=== PATIENT | male | born 1965 | race Caucasian/White ===

== ENCOUNTER 2018-03-28 11:39 | Emergency (ER) | payer BC, OTHER ==
[2018-03-28 14:24] LABS: Absolute Lymphocytes (CBC) 2.4 K/uL (0.7-4.9); Absolute Monocytes 0.6 K/uL (0.1-1.3); Absolute Neutrophil 4.5 K/uL (1.8-8.0); Basophils % 0.5 % (0-1.3); Eosinophils % 0.9 % (0-4.4); Hematocrit 49.6 % (39.6-49.0); Lymphocytes % 31.9 % (15.3-44.8); MPV 8.5 fL (7.6-11.3); Monocytes % 8.4 % (3.3-12.3); RBC Red Blood Cell Count 5.36 M/uL (4.33-5.43)
[2018-03-28 14:40] LABS: Albumin 3.6 g/dL (3.4-5.0); Bilirubin Direct 0.2 mg/dL (0-0.2); Potassium 3.7 mmol/L (3.5-5.1); Protein, Total 7.4 g/dL (6.4-8.2)
--- NOTE | 2018-03-28 17:04 | RAD REPORT ---
EXAM DESCRIPTION: CT - Abdomen Pelvis W Contrast - 03/28/2018 4:50 pm CLINICAL HISTORY: Left lower quadrant pain COMPARISON: None. TECHNIQUE: Biphasic, helical CT imaging of the abdomen and pelvis was performed following 100 ml non -ionic IV contrast. No oral contrast administered. All CT scans are performed using dose optimization technique as appropriate and may include automated exposure control or mA/KV adjustment according to patient size. FINDINGS: No suspicious findings in the lung bases. The liver, spleen, and pancreas show no suspicious focal findings. Liver shows diffuse fatty infiltra tion. Cholecystectomy clips are present with no biliary tree dilatation. Symmetric renal function is seen with no hydronephrosis or suspicious renal mass. No pyelonephritis o r acute parenchymal process. No bladder abnormalities. No adrenal abnormalities. No dilated bowel loops or bowel wall thickening. Appendix is normal. Patient has mild diverticulosis but no diverticulitis identifiable. Minimal mucosal level inflammatory changes can be occult on CT im aging. No free air, free fluid or inflammatory stranding. No mass or bulky lymphadenopathy. Patient has a 2.4 centimeter fat only periumbilical hernia. No bowel involvement. No suspicious bony findings. IMPRESSION: Mild left-sided diverticulosis without diverticulitis or other acute GI process identifi able. Fatty infiltration of the liver.
--- NOTE | 2018-03-28 17:35 | ER ---
Nurse's Notes [facility] Name: Charis Malcolm Age: 52 yrs Sex: Male : 1965 Arrival Date: 03/28/2018 Time: 11:45 Bed 25 Private MD: Eladio Irizarry Diagnosis: Unspecified abdominal pain Presentation: 03/28 12:10 Presenting complaint: Patient states: sharp LLQ pain that has been becoming more ss frequent over the past two days. Denies N/V/D and/or fever. Transition of care: patient was not received from another setting of care. Onset of symptoms was March 26, 2018. Risk Assessment: Do you want to hurt yourself or someone else? Patient reports no desire to harm self or others. Initial Sepsis Screen: Does the patient meet any 2 criteria? No. Patient's initial sepsis screen is negative. Does the patient have a suspected source of infection? No. Patient's initial sepsis screen is negative. Care prior to arrival: None. 12:10 Method Of Arrival: Ambulatory ss 12:10 Acuity: ARMANI 3 ss Historical: - Allergies: 12:11 Levaquin; ss - Immunization history:: Adult Immunizations up to date. - Social history:: Smoking status: Patient/guardian denies using tobacco. - Ebola Screening: : Patient denies exposure to infectious person Patient denies travel to an Ebola-affected area in the 21 days before illness onset. Screenin:45 Abuse screen: Denies threats or abuse. Denies injuries from another. Nutritional kr2 screening: No deficits noted. Tuberculosis screening: No symptoms or risk factors identified. Fall Risk None identified. Assessment: 13:42 General: Appears in no apparent distress. uncomfortable, well groomed, well developed, kr2 well nourished, Behavior is calm, cooperative, appropriate for age. Pain: Complains of pain in umbilical area and left lower quadrant Pain currently is 6 out of 10 on a pain scale. Quality of pain is described as sharp, tender, Is continuous, Alleviated by rest, Aggravated by increased activity. Neuro: Level of Consciousness is awake, alert, obeys commands, Oriented to person, place, time, situation, Appropriate for age. Cardiovascular: Capillary refill < 3 seconds in bilateral fingers Patient's skin is warm and dry. Respiratory: Airway is patent Respiratory effort is even, unlabored, Respiratory pattern is regular, symmetrical. GI: Abdomen is flat, non-distended, Bowel sounds present X 4 quads. Abd is soft X 4 quads Abdomen is tender to palpation in umbilical area and left lower quadrant umbilical hernia. Patient states, "I used to be able to push it back in but I can't do that anymore" Patient currently denies diarrhea, nausea, vomiting. : Denies burning with urination. EENT: Oral mucosa is moist. Derm: Skin is intact, is healthy with good turgor, Skin is pink, warm \\T\\ dry. Musculoskeletal: Circulation, motion, and sensation intact. 14:45 Reassessment: Patient appears in no apparent distress at this time. Patient and/or kr2 family updated on plan of care and expected duration. Pain level reassessed. Patient is alert, oriented x 3, equal unlabored respirations, skin warm/dry/pink. 15:30 Reassessment: No changes from previously documented assessment. kr2 16:14 Reassessment: Patient appears in no apparent distress at this time. Patient and/or kr2 family updated on plan of care and expected duration. Pain level reassessed. Patient is alert, oriented x 3, equal unlabored respirations, skin warm/dry/pink. 17:32 Reassessment: Patient appears in no apparent distress at this time. Patient and/or kr2 family updated on plan of care and expected duration. Pain level reassessed. Patient is alert, oriented x 3, equal unlabored respirations, skin warm/dry/pink. Vital Signs: 12:11 BP 147 / 92; Pulse 64; Resp 15; Temp 98.6(TE); Pulse Ox 96% on R/A; Weight 85.28 kg; Height 5 ft. 4 in. (162.56 cm); Pain 6/10; 14:00 BP 130 / 76; Pulse 66; Resp 16; Pulse Ox 97% on R/A; kr2 16:00 BP 140 / 88; Pulse 63; Resp 15; Pulse Ox 97% on R/A; kr2 17:30 BP 133 / 82; Pulse 67; Resp 17; Pulse Ox 96% on R/A; kr2 12:11 Body Mass Index 32.27 (85.28 kg, 162.56 cm) ED Course: 11:45 Patient arrived in ED. mr 11:45 Eladio Irizarry MD is Private Physician. mr 12:11 Triage completed. ss 12:11 Arm band placed on left wrist. ss 13:35 Sweta Saavedra, RN is Primary Nurse. kr2 13:41 Wilber Crespo PA is PHCP. m 13:41 Sirena Malloy MD is Attending Physician. jmm 13:45 Patient has correct armband on for positive identification. Bed in low position. Call kr2 light in reach. Side rails up X 1. Adult w/ patient. Pulse ox on. NIBP on. Door closed. Noise minimized. Warm blanket given. Head of bed elevated. 13:55 Missed attempt(s): 20 gauge in left forearm. Bleeding controlled, band aid applied, kr2 catheter tip intact. 14:00 Inserted saline lock: 22 gauge in left antecubital area, using aseptic technique. Blood kr2 collected. 16:50 Abdomen In Process Unspecified. EDMS 17:35 Sajan Kaur MD is Referral Physician. [facility] 17:43 No provider procedures requiring assistance completed. IV discontinued, intact, kr2 bleeding controlled, No redness/swelling at site. Pressure dressing applied. Administered Medications: 17:31 Drug: morphine 4 mg Route: IVP; Site: left antecubital; kr2 17:43 Follow up: Response: No adverse reaction; Pain is decreased kr2 17:31 Drug: Zofran 4 mg Route: IVP; Site: left antecubital; kr2 17:43 Follow up: Response: No adverse reaction kr2 Outcome: 17:35 Discharge ordered by . [facility] 17:48 Discharged to home via wheelchair, with family. kr2 17:48 Condition: good 17:48 Discharge instructions given to patient, family, Instructed on discharge instructions, follow up and referral plans. medication usage, Demonstrated understanding of instructions, follow-up care, medications, Prescriptions given X 1. 17:49 Patient left the ED. kr2 Signatures: Dispatcher [employer] EDMS Wilber Crespo PA PA jmm Connor Verna Jonelle Vaughnby, RN RN ss Sweta Saavedra, RN RN kr2 Corrections: (The following items were deleted from the chart) 17:43 17:42 Response: No adverse reaction kr2 kr2
--- NOTE | 2018-03-28 17:35 | EDPHYS ---
Physician Documentation [facility] Name: Charis Malcolm Age: 52 yrs Sex: Male : 1965 Arrival Date: 03/28/2018 Time: 11:45 Bed 25 Private MD: Eladio Irizarry ED Physician Sirena Malloy HPI: 03/28 14:12 This 52 yrs old Male presents to ER via Ambulatory with complaints of jmm Abdominal Pain. 14:12 The patient presents with abdominal pain. Onset: The symptoms/episode began/occurred jmm gradually, 2 day(s) ago. The symptoms do not radiate. Associated signs and symptoms: Pertinent negatives: nausea and vomiting, diarrhea, fever, testicular pain, vomiting. The symptoms are described as achy. This is a 52 year old male that presents to the ED with left lower abdominal pain beginning 2 days ago. Denies recent travel, infectious exposure, recent abx use. . Historical: - Allergies: 12:11 Levaquin; ss - Immunization history:: Adult Immunizations up to date. - Social history:: Smoking status: Patient/guardian denies using tobacco. - Ebola Screening: : Patient denies exposure to infectious person Patient denies travel to an Ebola-affected area in the 21 days before illness onset. ROS: 14:12 Constitutional: Negative for fever, chills, and weight loss, Cardiovascular: Negative jmm for chest pain, palpitations, and edema, Respiratory: Negative for shortness of breath, cough, wheezing, and pleuritic chest pain. 14:12 Abdomen/GI: Positive for abdominal pain. 14:12 All other systems are negative. Exam: 14:12 Head/Face: atraumatic. Eyes: EOMI, no conjunctival erythema appreciated ENT: Moist jmm Mucus Membranes Neck: Trachea midline, Supple Chest/axilla: Normal chest wall appearance and motion. Cardiovascular: Regular rate and rhythm. No edema appreciated Respiratory: Normal respirations, no respiratory distress appreciated 14:12 Constitutional: The patient appears in no acute distress, alert, awake. 14:12 Abdomen/GI: Inspection: abdomen appears normal, Bowel sounds: normal, Palpation: soft, moderate abdominal tenderness, in the left lower quadrant. 14:12 Back: pain. 14:12 Back: ROM is normal. 14:12 Musculoskeletal/extremity: ROM: intact in all extremities. 14:12 Skin: Appearance: Color: normal in color. 14:12 Neuro: Orientation: is normal, Mentation: is normal, Memory: is normal. 14:12 Psych: Behavior/mood is pleasant, cooperative. Vital Signs: 12:11 BP 147 / 92; Pulse 64; Resp 15; Temp 98.6(TE); Pulse Ox 96% on R/A; Weight 85.28 kg; ss Height 5 ft. 4 in. (162.56 cm); Pain 6/10; 14:00 BP 130 / 76; Pulse 66; Resp 16; Pulse Ox 97% on R/A; kr2 16:00 BP 140 / 88; Pulse 63; Resp 15; Pulse Ox 97% on R/A; kr2 17:30 BP 133 / 82; Pulse 67; Resp 17; Pulse Ox 96% on R/A; kr2 12:11 Body Mass Index 32.27 (85.28 kg, 162.56 cm) ss MDM: 13:57 Patient medically screened. [facility] 17:32 Data reviewed: vital signs, nurses notes. Counseling: I had a detailed discussion with kolby the patient and/or guardian regarding: the historical points, exam findings, and any diagnostic results supporting the discharge/admit diagnosis, lab results, radiology results, the need for outpatient follow up, to return to the emergency department if symptoms worsen or persist or if there are any questions or concerns that arise at home. ED course: Patient's abdomen is soft, patient has no testicular pain. I do not currently suspect and acute intraabdominal process. Symptoms may be secondary to umbilical hernia. Patient is advised to follow up with general surgery for reevaluation and is otherwise given strict return precautions. patient understood and agrees with the plan of care. . 03/28 14:15 Order name: Basic Metabolic Panel; Complete Time: 14:41 EDMS 03/28 14:15 Order name: Liver (Hepatic) Function; Complete Time: 14:41 EDMS 03/28 14:15 Order name: Lipase; Complete Time: 14:41 EDMS 03/28 14:15 Order name: Creatinine (Radiology Only); Complete Time: 14:41 EDMS 03/28 14:15 Order name: CBC with Automated Diff; Complete Time: 14:41 EDMS 03/28 15:57 Order name: Abdomen ; Complete Time: 17:10 EDMS 03/28 13:46 Order name: IV Saline Lock; Complete Time: 14:01 [facility] 03/28 13:46 Order name: Labs collected and sent; Complete Time: 14:01 [facility] Administered Medications: 17:31 Drug: morphine 4 mg Route: IVP; Site: left antecubital; kr2 17:43 Follow up: Response: No adverse reaction; Pain is decreased kr2 17:31 Drug: Zofran 4 mg Route: IVP; Site: left antecubital; kr2 17:43 Follow up: Response: No adverse reaction kr2 Disposition: 17:20 Co-signature as Attending Physician, Sirena Malloy MD. ma2 Disposition: 03/28/18 17:35 Discharged to Home. Impression: Unspecified abdominal pain. - Condition is Stable. - Discharge Instructions: Abdominal Pain, Adult. - Prescriptions for Ultracet 37.5- 325 mg Oral Tablet - take 1 tablet by ORAL route every 6 hours - for up to 5 days; do not exceed 8 tablets per day.; 20 tablet. - Medication Reconciliation Form, Thank You Letter, Antibiotic Education, Prescription Opioid Use form. - Follow up: Sajan Kaur MD; When: 2 - 3 days; Reason: Recheck today's complaints, Continuance of care, Re-evaluation by your physician. Signatures: Dispatcher [employer] [facility] Wilber Crespo PA PA [facility] Cassy Amaro RN RN ss Sweta Saavedra RN RN kr2 Sirena Malloy MD MD ma2 Corrections: (The following items were deleted from the chart) 16:21 15:55 Abdomen Pelvis W Con+CT.RAD.BRZ ordered. [facility] 17:42 13:46 Urine Dipstick-Ancillary ordered. [place] [id number] 17:49 17:35 03/28/2018 17:35 Discharged to Home. Impression: Unspecified abdominal pain. kr2 Condition is Stable. Forms are Medication Reconciliation Form, Thank You Letter, Antibiotic Education, Prescription Opioid Use. Follow up: Sajan Kaur; When: 2 - 3 days; Reason: Recheck today's complaints, Continuance of care, Re-evaluation by your physician. [facility]
[2018-03-28] MEDS ORDERED: ONDANSETRON 4 MG/2 ML VIAL ONE (17:37)
[2018-03-28] MEDS ORDERED: MORPHINE 4 MG/ML SYR ONE (17:37)
== END 2018-03-28 17:49 | disposition home or self-care (01) ==
LOC: ER 11:39
DX: R10.32 Left lower quadrant pain (principal); Z88.1 Allergy status to other antibiotic agents
CPT/HCPCS: 36415; 74177; 80048; 80076; 83690; 85025; 96374; 96375; 99284; J2405; Q9967

== ENCOUNTER 2024-07-02 18:52 | Inpatient (IN) | payer BC ==
--- OUTSIDE RECORDS SUMMARY | 2024-07-02 18:56 | XMS REPORT | Continuity of Care Document ---
Author Name Unknown Address [address] [facility] [address] [place] [address] [facility] [address] [facility] 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 Name Role Phone Wilman Up Attending Clinician UnavailJUAN A Quiñones Attending Clinician Unavailable CASSANDRA MA Attending Clinician UnaANA M Bush Attending Clinician Unavailable [facility] Attending Clinician Unavailabl e LAB90 Attending Clinician Unavailable NIRAJ HALEY Attending Clinician Unavailable Cassandra Ma MD Attending Clinician [phone] DOM VILLASENOR Attending Clinician Unavailable Doctor Unassigned, [place] Attending Clinician U Eladio Fajardo Admitting Clinician Unavailable Payers Payer Name Policy Type Policy Number Effective Date Expirati on Date Source BC 2 [id number] 2020 00:00:00 Problems Condition Name Condition Details Condition Category Status Onset Date Resolution Date Last Treatment Date Treating Clinician Comments Source Elevated liver enzymes Elevated liver enzymes Disease Active 2021-03 00:00: 00 Luz hernandez HTN (hypertens ion) HTN (hypertens ion) Disease Active 09-22 00:00: 00 Luz hernandez Gastroesop hageal reflux disease without esophagiti s Gastroesop hageal reflux disease without esophagiti s Disease Active 09-22 00:00: 00 Luz hernandez COPD (chronic obstructiv e pulmonary disease) COPD (chronic obstructiv e pulmonary disease) Disease Active 09-22 00:00: 00 Luz hernandez Moderate persistent asthma without complicati on Moderate persistent asthma without complicati on Disease Active 09-22 00:00: 00 Luz hernandez Obesity (BMI 30-39.9) Obesity (BMI 30-39.9) Disease Active 04-10 00:00: 00 Luz hernandez Acute postoperat karthik abdominal pain Acute postoperat karthik abdominal pain Disease Active 04-10 00:00: 00 [facility] Asthma (disorder) Asthma (disorder) Active Problem 11/04/2021 [facility] Problem Active 2021-11-04 03:30:16 Melissa Almendarez Ataxia (finding) Ataxia (finding) Active Problem 11/04/2021 [facility] Problem Active 2021-11-04 03:30:16 Melissa Almendarez Cervical radiculopa thy (disorder) Cervical radiculopa thy (disorder) Active Problem 11/04/2021 [facility] Problem Active 2021-11-04 03:30:16 Melissa Almendarez Paresthesi a (finding) Paresthesi a (finding) Active Problem 11/04/2021 [facility] Problem Active 2021-11-04 03:30:16 Melissa Almendarez Shoulder pain (finding) Shoulder pain (finding) Active Problem 11/04/2021 [facility] Problem Active 2021-11-04 03:30:16 Melissa Almendarez Allergies, Adverse Reactions, Alerts Allergy Name Allergy Type Status Severity Reaction(s) Onset Date Inactive Date Treating Clinician Comments Source levoflox acin DA Active U 2019-03 00:00: 00 [facility] levoflox acin DA Active U BLISTERS 2019-03 00:00: 00 [facility] Levoflox acin Propensi ty to adverse reaction s Active Rash 04-06 00:00: 00 Other reaction( s): BLISTERS Luz hernandez Levaquin Levaquin Active [facility] Social History Social Habit Start Date Stop Date Quantity Comments Source Gender identity Debbi sierra David - External Sexual orientation Shawna mario David - External History of tobacco use Cigarette Smoker Luz sifuentes - External Tobacco use and exposure 2022-10-14 00:00:00 2022-10-14 00:00:00 Smokeless tobacco non-user Luz Hernandez - External Alcohol intake 2022-10-14 00:00:00 2022-10-14 00:00:00 .43 /d Luz Hernandez - External History of Social function 2020-09-22 00:00:00 2020-09-22 00:00:00 Luz Hernandez - External Social History 2020-08-18 15:56:54 2020-08-18 15:56:54 [facility] Sex Assigned At 1965 00:00:00 1965 00[birth year]00:00 Luz Hernandez - External Smoking Status Start Date Stop Date Source Ex-smoker 2022-10-14 00:00:00 2022-10-14 00:00:00 Shawna mario David - External Medications Ordered Medication Name Filled Medication Name Start Date Stop Date Current Medication? Ordering Clinician Indication Dosage Frequency Signature (SIG) Comments Components Source Triamcinolo ne Acetonide (KENALOG) 40 mg/mL 10-14 21:30: 00 10-14 22:07 :00 No [id number] 40mg Luz hernandez predniSONE (DELTASONE) 10 MG oral tablet 10-14 00:00: 00 Yes [id number] One pill twice daily for 5 days then one pill daily for 5 days. Luz hernandez Clonidine HCl (CATAPRES) 0.1 MG oral Tablet 10-09 00:00: 00 Yes [id number] TAKE ONE (1) TABLET(S) BY MOUTH TWICE A DAY. Luz hernandez Trelegy Ellipta 100-62.5-25 MCG/ACT inhalation AEROSOL POWDER, BREATH ACTIVATED 3-14 00:00: 00 Yes [id number] INHALE ONE (1) PUFF(S) BY MOUTH ONCE DAILY. Luz hernandez Montelukast (SINGULAIR) 10 MG oral Tablet tablet 2021-03 2-16 00:00: 00 Yes [id number] 10mg Take 1 tablet (10 mg total) by mouth nightly Luz hernandez Amlodipine Besylate 10 MG oral Tablet 2021-03 2-05 00:00: 00 Yes [id number] TAKE ONE (1) TABLET(S) BY MOUTH ONCE A DAY WITH ATORVASTAT IN 10 MG. Luz hernandez Clonidine HCl 0.1 MG oral Tablet 2021-03 00:00: 00 Yes [id number] TAKE ONE (1) TABLET(S) BY MOUTH TWICE A DAY. Luz hernandez Pantoprazol e Sodium 40 MG oral Tablet Delayed Response 2021-03 00:00: 00 Yes [id number] TAKE ONE (1) TABLET(S) BY MOUTH ONCE A DAY. Luz hernandez Metoprolol Succinate 50 MG oral TABLET SR 24 HR 2021-03 00:00: 00 03-15 00:00 :00 No [id number] TAKE ONE (1) TABLET(S) BY MOUTH ONCE A DAY. Luz hernandez Clonidine HCl 0.1 MG oral Tablet 2021-03 00:00: 00 02-14 00:00 :00 No [id number] .1mg Take 1 tablet (0.1 mg total) by mouth daily Luz hernandez Fluticasone -Umeclidin- Vilant (Trelegy Ellipta) 100-62.5-25 MCG/INH inhalation AEROSOL POWDER, BREATH ACTIVATED 2021-03 0-07 00:00: 00 Yes [id number] Inhale 1 inhalation into the lungs daily Luz hernandez Pantoprazol e Sodium 40 MG oral Tablet Delayed Response 8-23 00:00: 00 Yes [id number] 40mg Take 1 tablet (40 mg total) by mouth daily Luz hernandez Roflumilast (Daliresp) 500 MCG oral Tablet 10-26 00:00: 00 Yes [id number] 1{tbl} Take 1 tablet by mouth daily Luz hernandez Irbesartan- hydroCHLORO thiazide 300-12.5 MG oral Tablet 10-26 00:00: 00 Yes [id number] 1{tbl} Take 1 tablet by mouth daily Luz hernandez Amlodipine Besylate 10 MG oral Tablet 10-26 00:00: 00 Yes [id number] TAKE ONE (1) TABLET(S) BY MOUTH ONCE A DAY WITH ATORVASTAT IN 10 MG. Luz hernandez Atorvastati n Calcium 10 MG oral Tablet 10-26 00:00: 00 02-14 00:00 :00 No [id number] TAKE ONE (1) TABLET(S) BY MOUTH ONCE A DAY WITH AMLODIPINE 10MG. Luz hernandez Metoprolol Succinate 50 MG oral TABLET SR 24 HR 09-14 00:00: 00 Yes [id number] TAKE ONE (1) TABLET (50 MG TOTAL) BY MOUTH DAILY. Luz hernandez ALBUTEROL HFA 108 (90 Base) MCG/ACT IN AERS 08-15 00:00: 00 Yes [id number] INHALE TWO (2) PUFFS INTO THE LUNGS BY MOUTH EVERY 6 HOURS NEEDED FOR WHEEZING. Luz hernandez Hydrochloro thiazide 12.5 MG Oral Capsule 09-25 20:32: 00 Yes 12.5 mg = 1 cap, PO, Daily, # 30 cap, 0 Refill(s) Melissa Almendarez Montelukast (SINGULAIR) 10 MG oral Tablet tablet 09-22 00:00: 00 Yes [id number] 10mg Take 1 tablet (10 mg total) by mouth nightly Luz hernandez Clonidine HCl 0.1 MG oral Tablet 09-22 00:00: 00 02-14 00:00 :00 No [id number] .1mg Take 1 tablet (0.1 mg total) by mouth 2 times daily Luz hernandez Piroxicam 20 MG oral Capsule 09-14 00:00: 00 Yes 1{gloriau le} Take 1 capsule by mouth daily Luz hernandez Piroxicam 20 MG oral Capsule 09-14 00:00: 00 10-14 00:00 :00 No 20mg Take 1 capsule (20 mg total) by mouth daily Luz hernandez Trelegy Ellipta inhalation powder 08-18 16:09: 00 Yes INHALE ONE (1) PUFF(S) ONCE A DAY. Melissa Almendarez Albuterol 0.83 MG/ML Inhalant Solution 08-18 16:09: 00 Yes USE ONE (1) VIAL VIA NEBULIZER FOUR TIMES DAILY NEEDED. Melissa Almendarez pantoprazol e 40 mg oral enteric coated tablet 08-18 16:09: 00 Yes TAKE ONE (1) TABLET(S) BY MOUTH ONCE A DAY. Melissa Almendarez montelukast 10 mg oral tablet 08-18 16:09: 00 Yes TAKE ONE (1) TABLET(S) BY MOUTH ONCE A DAY. Melissa Almendarez Metoprolol Succinate ER 50 mg oral tablet, extended release 08-18 16:09: 00 Yes TAKE ONE (1) TABLET(S) BY MOUTH ONCE A DAY. Melissa Almendarez Roflumilast 0.5 MG Oral Tablet [Daliresp] 08-18 16:09: 00 Yes 500 microgram = 1 tab, PO, Daily, 0 Refill(s) Melissa Almendarez Hydrochloro thiazide 12.5 MG / irbesartan 300 MG Oral Tablet 08-18 16:08: 00 Yes 1 tab, PO, Daily, # 30 tab, 0 Refill(s) Melissa Almendarez No known medications No Un zoë [facility] Vital Signs Vital Name Observation Time Observation Value Comments S ourpatricia Systolic blood pressure 2022-10-14 21:19:00 134 mm[Hg] Luz treadwell - External Diastolic blood pressure 2022-10-14 21:19:00 81 mm[Hg] Luz treadwell - External Heart rate 2022-10-14 21:19:00 74 /min Kelse y Seybold - External Respiratory rate 2022-10-14 21:19:00 14 /min Luz Seybold - External Body height 2022-10-14 21:19:00 162.6 cm Debbi ey Seybold - External Body weight 2022-10-14 21:19:00 93.441 kg Debbi ey Seybold - External BMI 2022-10-14 21:19:00 35.36 kg/m2 Debbi ey Seybold - External Oxygen saturation in Arterial blood by Pulse oximetry 2022-10-14 21:19:00 99 /min Luz Seybo ld - External Systolic blood pressure 2022-03-15 22:14:00 144 mm[Hg] Luz Seybo ld - External Diastolic blood pressure 2022-03-15 22:14:00 82 mm[Hg] Luz Seybo ld - External Heart rate 2022-03-15 22:14:00 98 /min Kelse y Seybold - External Body temperature 2022-03-15 22:14:00 36.67 Sharon Luz Seybold - External Respiratory rate 2022-03-15 22:14:00 16 /min Luz Seybold - External Body height 2022-03-15 22:14:00 162.6 cm Debbi ey Seybold - External Body weight 2022-03-15 22:14:00 93.441 kg Debbi ey Seybold - External BMI 2022-03-15 22:14:00 35.36 kg/m2 Debbi ey Seybold - External Systolic blood pressure 2022-02-14 21:19:00 126 mm[Hg] Luz Seybo ld - External Diastolic blood pressure 2022-02-14 21:19:00 76 mm[Hg] Luz Seybo ld - External Heart rate 2022-02-14 21:19:00 87 /min Kelse y Seybold - External Body temperature 2022-02-14 21:19:00 36.89 Sharon Luz Seybold - External Respiratory rate 2022-02-14 21:19:00 16 /min Luz Seybold - External Body height 2022-02-14 21:19:00 162.6 cm Debbi ey Seybold - External Body weight 2022-02-14 21:19:00 94.348 kg Debbi ey Seybold - External BMI 2022-02-14 21:19:00 35.70 kg/m2 Debbi ey Seybold - External Systolic (mm Hg) 2021-01-08 20:20:00 [facility] Diastolic (mm Hg) 2021-01-08 20:20:00 [facility] Heart Rate 2021-01-08 20:20:00 [facility] Respitory Rate 2021-01-08 20:20:00 [facility] Height 2021-01-08 20:20:00 162.56 cm [facility] Weight 2021-01-08 20:20:00 [facility] BMI Calculated 2021-01-08 20:20:00 [facility] Systolic (mm Hg) 2020-09-25 20:19:00 [facility] Diastolic (mm Hg) 2020-09-25 20:19:00 [facility] Heart Rate 2020-09-25 20:19:00 [facility] Respitory Rate 2020-09-25 20:19:00 [facility] Height 2020-09-25 20:19:00 162.56 cm [facility] Weight 2020-09-25 20:19:00 [facility] BMI Calculated 2020-09-25 20:19:00 [facility] Systolic (mm Hg) 2020-09-19 14:52:00 [facility] Diastolic (mm Hg) 2020-09-19 14:52:00 [facility] Heart Rate 2020-09-19 14:52:00 [facility] Respitory Rate 2020-09-19 14:52:00 [facility] Height 2020-09-19 14:52:00 165.1 cm [facility] Weight 2020-09-19 14:52:00 [facility] BMI Calculated 2020-09-19 14:52:00 [facility] Systolic (mm Hg) 2020-08-18 15:55:00 [facility] Diastolic (mm Hg) 2020-08-18 15:55:00 [facility] Heart Rate 2020-08-18 15:55:00 [facility] Respitory Rate 2020-08-18 15:55:00 [facility] Weight 2020-08-18 15:55:00 [facility] Procedures Procedure Date / Time Performed Performing Clinicia n Source PHYSICIAN ORDERS 2020-10-18 05:01:00 Doctor Priyanka signed, [place] [facility] Procedure<sup>1</sup> [facility] Encounters Start Date/Time End Date/Time Encounter Type Admission Type Attending [facility] Care Department Encounter ID Source 2020-02-04 08:52:00 [id number] 2023-10-13 00:00:00 2023-10-13 00:00:00 Outpatient JUAN A LAGUNAS [id number] [facility] 2023-10-04 00:00:00 2023-10-04 00:00:00 Outpatient JUAN A LAGUNAS [id number] [facility] 2023-06-03 00:00:00 2023-06-03 00:00:00 Outpatient JUAN A LAGUNAS [id number] [facility] 2023-04-27 00:00:00 2023-04-27 00:00:00 Outpatient CASSANDRA MA [id number] [facility] 2023-03-25 00:00:00 2023-03-25 00:00:00 Outpatient JUAN A LAGUNAS [id number] [facility] 2023-02-23 00:00:00 2023-02-23 00:00:00 Outpatient JUAN A LAGUNAS [id number] [facility] 2023-02-12 00:00:00 2023-02-12 00:00:00 Outpatient JUAN A LAGUNAS [id number] [facility] 2023-02-12 00:00:00 2023-02-12 00:00:00 Outpatient JUAN A LAGUNAS [id number] [facility] 2022-12-11 00:00:00 2022-12-11 00:00:00 Outpatient ANA M MCKEON LUZ GONSALES [id number] Luz Seybold 2022-12-05 00:00:00 2022-12-05 00:00:00 Outpatient PREZAS, JUAN A LUZ GONSALES [id number] Luz Seybold 2022-11-26 00:00:00 2022-11-26 00:00:00 Outpatient PREZAS, JUAN A LUZ GONSALES [id number] Luz Seybold 2022-11-20 16:15:00 2022-11-20 16:15:00 Outpatient PREZAS, JUAN A [facility] GONSALES [id number] [facility] 2022-11-15 00:00:00 2022-11-15 00:00:00 Outpatient FRANCESCACASSANDRA LIMA LUZ GONSALES [id number] [facility] 2022-10-17 16:30:00 2022-10-17 16:30:00 Outpatient CELENABRUCE LUZ GONSALES [id number] [facility] 2022-10-17 00:00:00 2022-10-17 00:00:00 Outpatient PREZAS, JUAN A [facility] GONSALES [id number] [facility] 2022-10-16 00:00:00 2022-10-16 00:00:00 Outpatient PREZAS, JUAN A [facility] GONSALES [id number] [facility] 2022-10-15 16:40:00 2022-10-15 16:40:00 Outpatient PANDA LUZ GONSALES [id number] Luz Seybold 2022-10-14 16:30:00 2022-10-14 16:30:00 Outpatient PREZAS, JUAN A LUZ GONSALES [id number] Luz Seybold 2022-10-09 00:00:00 2022-10-09 00:00:00 Outpatient NIRAJ HALEY [id number] Luz Seybold 2022-06-19 00:00:00 2022-06-19 00:00:00 Outpatient NIRAJ HALEY [id number] Luz Seybold 2022-06-11 00:00:00 2022-06-11 00:00:00 Outpatient PREZAJUAN A Handy LUZ [id number] [facility] 2022-04-10 00:00:00 2022-04-10 00:00:00 Outpatient PREJUAN A GOLDEN [facility] [id number] [facility] 2022-03-15 16:30:00 2022-03-15 16:30:00 Outpatient PREZAJUAN A Handy LUZ [id number] [facility] 2022-03-04 00:00:00 2022-03-04 00:00:00 Outpatient FRANCESCACASSANDRA LUZ GONSALES [id number] [facility] 2022-03-02 00:00:00 2022-03-02 00:00:00 Outpatient MCKEON, ANA M LUZ GONSALES [id number] [facility] 2022-03-01 00:00:00 2022-03-01 00:00:00 Outpatient TERA NIRAJ [facility] [id number] [facility] 2022-03-01 00:00:00 2022-03-01 00:00:00 Outpatient MCKEON, ANA M LUZ GONSALES [id number] [facility] 2022-02-24 00:00:00 2022-02-24 00:00:00 Outpatient MCKEON, ANA M LUZ GONSALES [id number] [facility] 2022-02-14 15:15:00 2022-02-14 15:15:00 Outpatient PREZAJUAN A Handy LUZ GONSALES [id number] [facility] 2022-02-14 00:00:00 2022-02-14 00:00:00 Outpatient FRANCESCACASSANDRA LUZ GONSALES [id number] [facility] 2022-01-04 00:00:00 2022-01-04 00:00:00 Outpatient PREZAJUAN A Handy [facility] [id number] [facility] 2021-10-31 14:33:49 2021-11-02 04:59:59 Outside Medical Records nullFlavo r [facility] [place] [id number] Melissa Almendarez 2021-10-31 00:00:00 2021-10-31 00:00:00 Outpatient CASSANDRA MA LUZ GONSALES [id number] [facility] 2021-10-26 08:45:00 2021-10-26 08:45:00 Outpatient LAB90 LUZ GONSALES [id number] [facility] 2021-10-26 08:00:00 2021-10-26 08:30:00 Office Visit Francesca Cassandra Saadsolisthomas Polk [id number] [facility] 2021-08-15 00:00:00 2021-08-15 00:00:00 Outpatient FRANCESCA CASSANDRA GONSALES [id number] [facility] 2021-07-16 00:00:00 2021-07-16 00:00:00 [facility]patient [facility]ENOR [id number] [facility] 2021-07-10 20:30:00 2021-07-10 20:30:00 Ambulatory Pre-Reg nullFlavo r [facility] [place] [id number] Memoria mary Almendarez 2021-04-29 00:00:00 2021-04-29 00:00:00 Outpatient CASSANDRA MA [id number] [facility] 2021-03-26 00:00:00 2021-03-26 00:00:00 Outpatient ANA M MCKEON [id number] [facility] 2021-03-23 00:00:00 2021-03-23 00:00:00 Outpatient CASSANDRA MA [id number] [facility] 2021-03-15 00:00:00 2021-03-15 00:00:00 Outpatient CASSANDRA MA [id number] [facility] 2021-02-13 16:45:00 2021-02-13 16:45:00 Outpatient BRUCE DALLAS [id number] [facility] 2021-01-08 20:00:00 2021-01-09 04:59:59 Outpatient nullFlavo r [facility] [place] [id number] Melissa hernandez [facility] 2021-01-02 00:00:00 2021-01-02 00:00:00 Outpatient DOM VILLASENOR LUZ GONSALES [id number] [facility] 2020-11-23 16:30:00 2020-11-23 16:30:00 Outpatient CASSANDRA MA [id number] [facility] 2020-11-10 10:00:00 2020-11-10 10:00:00 Outpatient LAB90 LUZ GONSALES [id number] [facility] 2020-11-10 09:15:00 2020-11-10 09:15:00 Outpatient CASSANDRA MA [id number] [facility] 2020-10-25 17:15:00 2020-10-25 17:15:00 Outpatient LAB90 LUZ GONSALES [id number] [facility] 2020-10-25 16:30:00 2020-10-25 16:30:00 Outpatient CASSANDRA MA [id number] [facility] 2020-10-18 00:00:00 2020-10-18 00:00:00 Outpatient ANA LILIA VILLASENORKENNETH GONSALES [id number] [facility] 2020-10-18 00:00:00 2020-10-18 00:00:00 Orders Only Doctor Unassigned, [place] [facility] [id number] [facility] 2020-09-29 16:50:00 2020-09-29 16:50:00 Outpatient [facility]AL[facility] [id number] [facility] 2020-09-25 20:00:00 2020-09-26 04:59:59 Outpatient nullFlavo r [facility] [place] [id number] Eboninadya mary Almendarez 2020-09-19 14:45:00 2020-09-20 04:59:59 Outpatient nullFlavo r [facility] [place] [id number] Eboninadya mary Almendarez 2020-08-18 15:45:00 2020-08-19 04:59:59 Outpatient nullFlavo r [facility] [place] [id number] Melissa Almendarez Results Test Description Test Time Test Comments Results Result Co mments Source COVID 19 INHOUSE [id number] 18:04:00* Test Item Value Reference Range Interpretation Comme nts COVID 19 INHOUSE AG (test code = [id number]) NEGATIVE Negative Per construction quality control manager , negative results should be treated aspresumptive and, if inconsistent with clinical signs andsymptoms or necessary for patient management, should betested with an alternative molecular assay. Negative resultsdo not preclude SARS-CoV-2 infection and should not be usedas the sole basis for patient management decisions. Negative results should be considered in the context of apatient's recent exposures, history, presence of clinicalsigns and symptoms consistent with COVID-19. BASIC METABOLIC [id number] 17:26:00* Test Item Value Reference Range Interpretation Comme nts SODIUM (test code = NA) 140 mmol/L 134-147 N POTASSIUM (test code = K) 3.1 mmol/L 3.4-5.0 L CHLORIDE (test code = CL) 108 mmol/L 100-108 N CARBON DIOXIDE (test code = CO2) 25 mmol/L 21-32 N ANION GAP (test code = GAP) 7.0 GAP calc 4.0-15.0 N GLUCOSE (test code = GLU) 132 MG/DL 70-110 H BLOOD UREA NITROGEN (test code = BUN) 20 MG/DL 7-18 H GLOMERULAR FILTRATION RATE (test code = GFR) >=60 max estimate estGFR >60 CREATININE (test code = CREAT) 1.1 MG/DL 0.8-1.3 N CALCIUM (test code = CA) 9.3 MG/DL 8.5-10.1 N CBC W/AUTO [id number] 17:12:00* Test Item Value Reference Range Interpretation Comme nts WHITE BLOOD CELL (test code = WBC) 6.6 K/mm3 3.5-11.0 N RED BLOOD CELL (test code = RBC) 5.35 M/mm3 4.70-6.10 N HEMOGLOBIN (test code = HGB) 17.5 G/DL 12.3-15.9 H HEMATOCRIT (test code = HCT) 48.6 % 35.8-46.7 H MEAN CELL VOLUME (test code = MCV) 90.8 Fl 86.3-98.9 N MEAN CELL HGB (test code = MCH) 32.7 pg 28.9-34.4 N MEAN CELL HGB CONCETRATION (test code = MCHC) 36.0 G/DL 32.1-34.5 H RED CELL DISTRIBUTION WIDTH (test code = RDW) 13.3 SD 11.5-14.5 N PLATELET COUNT (test code = PLT) 256 K/mm3 150-450 N MEAN PLATELET VOLUME (test c ode = MPV) 9.50 fL 7.0-9.6 N NEUTROPHIL % (test code = NT%) 52.0 % 40-76 N IMMATURE GRANULOCYTE % (test code = IG%) 0.5 % 0.0-5.0 N LYMPHOCYTE % (test code = LY%) 37.3 % 20.5-51.1 N MONOCYTE % (test code = MO%) 7.9 % 1.7-9.3 N EOSINOPHIL % (test code = EO%) 1.4 % 0.0-6.0 N BASOPHIL % (test code = BA%) 0.9 % 0.0-2.0 N NUCLEATED RBC % (test code = NRBC%) 0.0 /100WBC% 0.0-1.0 N NEUTROPHIL # (test code = NT#) 3.4 K/mm3 1.8-7.6 N IMMATURE GRANULOCYTE # (test code = IG#) 0.03 x10 3/uL 0.00-0.03 N LYMPHOCYTE # (test code = LY#) 2.5 K/mm3 0.6-3.0 N MONOCYTE # (test code = MO#) 0.5 K/mm3 0.2-1.5 N EOSINOPHIL # (test code = EO#) 0.1 K/mm3 0.0-0.4 N BASOPHIL # (test code = BA#) 0.1 K/mm3 0.0-0.2 N NUCLEATED RBC # (test code = NRBC#) 0.0 K/mm3 0.00-0.01 N MANUAL DIFF REQUIRED (test c ode = MDIFF) NO DIFF/SCN CRITERIA PROTHROMBIN [id number] 17:09:00* Test Item Value Reference Range Interpretation Comme nts PT PATIENT (test code = PTP) 11.6 SECONDS 9.3-12.9 N INTERNATIONAL NORMAL RATIO (test code = INR) 1.03 INR Unit 0.8-1.2 N THROMBOPLASTIN TIME [id number] 17:09:00* Test Item Value Reference Range Interpretation Comme nts THROMBOPLASTIN TIME PARTIAL (test code = PTT) 33.4 SECONDS 26-35 N Notes Date/Time Note Provider Source 2020-02-04 18:10:00 [id number] [facility] [id number] [place] [id number] PATIENT NAME: PEDRO MALCOLM ADMIT DATE: 02/04/20 ACCOUNT NO: [id number] ROOM NO: AGE: 54 REPORT TYPE: OPERATIVE REPORT SEX: M ADMITTING PHYSICIAN: ATTENDING PHYSICIAN: Wilman Up III, MD OPERATION DATE: 02/04/2020 PREOPERATIVE DIAGNOSES: 1. Severe left-sided nasal septal deviation with collapse of the left nasal cavity. 2. Bilateral inferior turbinate hypertrophy, right greater than left. 3. Chronic nasal obstruction. POSTOPERATIVE DIAGNOSES: 1. Severe left-sided nasal septal deviation with collapse of the left nasal cavity. 2. Bilateral inferior turbinate hypertrophy, right greater than left. 3. Chronic nasal obstruction. PROCEDURES PERFORMED: 1. Septoplasty. 2. Bilateral endoscopic submucosal resection of the inferior turbinates using microdebrider (2.9 mm turbinate blade). PRIMARY SURGEON: Wilman Up MD. VIDEO RECORDER MECHANIC: ANESTHESIA: General endotracheal anesthesia. ESTIMATED BLOOD LOSS: 100 mL. URINE OUTPUT: Not recorded. INTRAVENOUS FLUID: 2000 mL. DRAINS: None. SPECIMENS: 1. Nasal septum. 2. Inferior turbinates. COMPLICATIONS: None. FINDINGS: 1. The nasal septum was severely deviated to the left side of the nasal cavity, creating near-complete obstruction. The deviation was created anteriorly by PATIENT NAME: PEDRO MALCOLM deviation of the quadrangular cartilage, which was severely bowed to the left side of the nasal cavity. Posteriorly, there was a large bone spur involving the perpendicular plate of the ethmoid bone, which deviated to the left. The posterior aspect of the maxillary crest bone also deviated to the left along the floor of the nasal cavity. I had to split the anterior most aspect of the maxillary crest and the sagittal plane and removed the left side of the crest in order to open the left nostril medially. I preserved strut of anterior quadrangular cartilage was sutured to the right hand side of the preserved strut of anterior maxillary crest bone. 2. Bilateral vtgmnzhi-vh-pjikzp inferior turbinate hypertrophy. The right inferior turbinate was severely hypertrophied with a polypoid edematous nature. Both inferior turbinates were debulked in a submucosal fashion using the microdebrider. INDICATION FOR PROCEDURE: Pedro Malcolm is a 54-year-old male with a lifelong history of chronic nasal obstruction. He is unable to breathe through the left side of his nasal cavity. He has tried using nasal steroid sprays and nasal saline spray without improvement. I operated on his son last year and his son had a severe septal deviation. His son has been able to breathe well following the procedure and he told his dad that he needed to have the procedure done. When I saw his dad in the office, I appreciated the same severe left-sided septal deviation that I had seen in his son. Because of his failure to improve with medical therapy, I recommended the above procedure. PROCEDURE IN DETAIL: Mr. Malcolm was taken to the operating room and his identification was confirmed using his ID bracelet. He was placed on the operating table in the supine position. General endotracheal anesthesia was initiated by the anesthesia team without complication. Time-out was performed. His preoperative COVID-19 testing was negative. Routine COVID-19 precautions were taken throughout the procedure. I first turned my attention to his nasal cavity. Both sides of the nasal cavities were decongested using Afrin-soaked pledgets. I was actually unable to put an Afrin pledget in the left side of his nose because it was so collapsed. I injected both sides of the nasal septum and the anterior heads of the inferior turbinates with 1% lidocaine with 1:100,000 units of epinephrine. A 10 mL were injected in total. His nose was then prepped and draped in the normal sterile fashion. I began the procedure by creating left-sided hemitransfixion incision. I then used a Rancocas elevator to raise mucosal flaps over both sides of the quadrangular cartilage. I knew that I would have to completely mobilize the cartilage so that I could reposition the anterior most aspect of the quadrangular cartilage in the midline. Once I had raised mucosal flaps over both sides of the quadrangular cartilage, this exposed the severe bowed nature of the quadrangular cartilage. I designed an angulated strut of the anterior most aspect of the quadrangular cartilage, which was approximately 7 to 8 mm in thickness. Posterior to this strut of cartilage, I resected the remainder of the quadrangular cartilage. This piece of cartilage was bowed and contorted. It was set aside for later crushing and reimplantation. Once I had removed this window of cartilage, I was able to clearly visualize the PATIENT NAME: PEDRO MALCOLM perpendicular plate of the ethmoid bone and the posterior aspect of the maxillary crest bone. Both of these structures contributed to the severe left-sided septal deviation. There was a large bone spur associated with the perpendicular plate of the ethmoid bone that impinged on the left middle meatus. I used a Blossom-Hurtado punch and a Feliz forceps to takedown the perpendicular plate of the ethmoid bone. I used a 4-mm osteotome to take down the posterior aspect of the maxillary crest bone that was deviating to the left along the floor of the nasal cavity. I then used suction cauterization to obtain hemostasis at the free edge of the maxillary crest bone that was trimmed. Following these maneuvers, the posterior aspect of the septal flaps rested in the midline. I next turned my attention to the anterior strut of quadrangular cartilage. I removed the strut from its attachment to the anterior most aspect of the maxillary crest bone. There was a fullness of the maxillary crest bone that was displacing the medial crura of the left lower lateral cartilage laterally. This was distorting the nostril and creating obstruction in the left nostril. I used tenotomy scissors to free up the soft tissues around the anterior aspect of the maxillary crest bone. I had used a little suction cauterization in this area to control some bloody oozing as well. I then used a 4-mm osteotome to split the anterior crest of the maxillary crest bone in the sagittal plane. I then removed the bone on the left side of the maxillary crest. I had used some suction cauterization to obtain hemostasis at the free edge of the bone that was trimmed. By removing this portion of the bone, and allowed the medial crura of the left lower lateral cartilage to medialize. I then trimmed the inferior aspect of the anterior strut of quadrangular cartilage that had been preserved. I trimmed it about 3 to 4 mm. I was then able to straighten it out and secure it to the right side of the preserved anterior strut of maxillary crest bone using a 4-0 PDS suture. This helped to secure this piece of cartilage in the midline. Following these maneuvers above, the anterior and posterior septal flaps rested in the midline. There was some redundancy to the overlying mucosa and I used suction cauterization on the undersurface of the mucosa to plicate the redundant mucosa. I then turned my attention to the inferior turbinates. The right inferior turbinate was severely hypertrophied while the left inferior turbinate was only hypertrophied along its posterior aspect. I used a 0-degree endoscope during this portion of the procedure. I used a caudal elevator to raise mucosal flap along the length of the inferior turbinates on both sides. I then used a 2.9 mm turbinate blade to perform a submucosal resection of the underlying bone and submucosal tissues of the inferior turbinates. Microdebrider did an excellent job of debulking the inferior turbinates, particularly the very large right inferior turbinate. I then outfractured the inferior turbinates against the lateral nasal wall using a Henriquez elevator. I used cauterization to control bloody oozing from the puncture sites created by the microdebrider and the anterior heads of the inferior turbinates. I also used direct cauterization with the suction cautery to reduce some of the redundant polypoid mucosa over the bodies and tails of the inferior turbinates. This was particularly useful on the right hand side where the inferior turbinate was severely hypertrophied. Following these maneuvers, both nasal passages were widely patent. I then turned my attention back to the nasal septum. I evacuated some bloody PATIENT NAME: PEDRO MALCOLM oozing from between the septal flaps, but the bloody oozing was very mild. The anterior strut of quadrangular cartilage was well secured to the anterior strut of maxillary crest bone. I inspected the pieces of cartilage that I had removed earlier. The cartilage was very contorted and bowed. I split the cartilage and then crushed it. I then repositioned the cartilage between the septal flaps immediately behind the preserved anterior strut of quadrangular cartilage. I also used some small pieces of the ethmoid bone to reconstitute the more posterior aspect of the nasal septum. I then placed Cruz splints on both sides of the nasal cavity. I closed the left-sided hemitransfixion incision using a 4-0 plain gut placed in an interrupted fashion. I then secured the Cruz splints anteriorly using a 2-0 nylon stitch placed in a horizontal mattress fashion through the anterior nasal septum. His nose was then cleaned. He was awakened from general anesthesia without complication. He was transported to the PACU in stable condition. Dictated By: Wilman Up MD WT: OP:[email or web address]/[email or web address] Conf#: [id number]#: [id number] Authenticated by Wilman Up MD On 03/07/2020 07:09:22 AM at 0709 PATIENT NAME: PEDRO MALCOLM [facility] 2020-02-04 09:33:00 [facility]) Brief Discharge Note w/Med Rec REPORT#:[id number] REPORT STATUS: Signed DATE:02/04/20 TIME:932 PATIENT: PEDRO MALCOLM UNIT #: [id number] ROOM/BED: : 66 AGE: 54 SEX: M ATTEND: Wilman Up III, MD ADM AUTHOR: Wilman Up III, MD * ALL edits or amendments must be made on the electronic/computer document * Med Rec Med Rec Discharge meds: Continue taking these medications: ALBUTEROL (VENTOLIN 2 MG/5 ML) 2 MG/5 ML SYRUP 2 MILLIGRAM ORAL EVERY 6 HOURS. ROFLUMILAST (DALIRESP) 500 MCG TAB 500 MICROGRAM ORAL DAILY. IRBESARTAN/HCTZ (AVALIDE 300/12.5 MG) 300 MG-12.5 MG TAB 1 TABLET ORAL DAILY. amLODIPine (NORVASC) 10 MG TAB 10 MILLIGRAM ORAL DAILY. PANTOPRAZOLE DR (PROTONIX) 40 MG TAB.DR 40 MILLIGRAM ORAL DAILY. MONTELUKAST (SINGULAIR) 10 MG TAB 10 MILLIGRAM ORAL DAILY. cloNIDine (CATAPRES) 0.1 MG TAB 0.1 MILLIGRAM ORAL TWICE DAILY. Start taking the following new medications: SULFAMETHOXAZOLE/TMP (BACTRIM DS 800/160 MG) 800 MG-160 MG TAB 1 TABLET ORAL EVERY 12 HOURS. Days = 10 Qty = 20 No Refills Instructions: UNTIL FINISHED HYDROcodone/APAP (NORCO 5/325) 1 TAB TAB 1 TABLET ORAL EVERY 6 HOURS NEEDED. as needed for PAIN Days = 7 Qty = 28 No Refills SODIUM CHLORIDE (OCEAN 0.65%) 45 ML SPRAY 2 SPRAY NASAL DIRECTED. Days = 30 Qty = 500 No Refills Objective VS/I O Last Documented: Result Date Time Pulse Ox 97 02/03 838 B/P 141/90 02/03 838 O2 Delivery Room air 02/03 838 Temp 36.3 02/03 838 Pulse 81 02/03 838 Resp 18 02/03 838 General appearance: alert, awake, oriented Head/Eyes: atraumatic, normocephalic ENT: nasal splints in place; mild bloody nasal drainage Cardiovascular: regular rate rhythm Respiratory: clear to auscultation Brief Discharge Note w/Med Rec Problem List/A P: 1. Deviated nasal septum 2. Hypertrophy of both inferior nasal turbinates 3. Nasal congestion Discharge to: Home/Self Care Discharge diagnosis: as above Hospital course: He underwent a septoplaty and turbinate reduction. He tolerated the procedure well. His pain was controlled and he tolerated an oral diet. OK to discharge home post op. Pt. condition on discharge: stable Prescriptions: with patient Additional Discharge Routines: None Diet: Regular Activity: Light Duty, No Lifting >10lbs, No Strenuous Activity Wound/dressing care: Nasal saline spray 2 sprays in each nostril QID and prn nasal congestion. Keep head elevated - sleep on 3 to 4 pillows. Follow-up Appointments Attending Physician: Attending Physician: Wilman Up III, MD Attending physician follow up timeframe: In 3 days at 0717 [facility] #: [id number] END OF REPORT [facility] 2020-02-02 16:38:00 [id number] [facility] [id number] [place] [id number] PATIENT NAME: PEDRO MALCOLM ADMIT DATE: ACCOUNT NO: [id number] ROOM NO: AGE: 54 REPORT TYPE: eELECTROCARDIOGRAM SEX: M ADMITTING PHYSICIAN: ATTENDING PHYSICIAN: Wilman Up III, MD Order: [id number] Test Reason : PREOP Test Date/Time Stamp: FriFeb 02 2020 16:38:37 Blood Pressure : / mmHG Vent. Rate : 078 BPM Atrial Rate : 078 BPM P-R Int : 160 ms QRS Dur : 084 ms QT Int : 408 ms P-R-T Axes : 054 029 064 degrees QTc Int : 465 ms Normal sinus rhythm Normal ECG No previous ECGs available Confirmed by DALE FERNANDO MD ([id number]) on 02/03/2020 10:15:37 PM Referred By: Wilman Up Confirmed by:DALE FERNANDO MD at [id number] PATIENT NAME: PEDRO MALCOLM [facility]
--- NOTE | 2024-07-02 19:18 | RAD REPORT ---
EXAMINATION: Ct Stroke Brain Wo Cont CLINICAL INDICATION: Male, 59 years old.STROKE ALERT TECHNIQUE: Axial CT images from the skull base to the vertex without intravenous contrast using a str mary protocol. Coronal and sagittal reformatted images were created from the data set. One or more of the following dose reduction techniques were used: Automated exposure control, adjustment of the m A and/or kV according to patient size, and/or iterative reconstruction. Unless otherwise specified, incidental findings do not require dedicated imaging follow-up. [id number]. COMPARISON: 11/23/2009 FINDINGS: INTRACRANIAL: No acute intracranial hemorrhage. No hydrocephalus. No mass effect or midline shift. No significant white matter disease. VASCULATURE: No visualized abnormalities in the arteries or dural venous sinuses. SCALP/SKULL: No calvarial fracture identified. No acute soft tissue abnormality. SINUSES: The visualized paranasal sinuses are mostly clear. No significant mastoid fluid. IMPRESSION: No acute intracranial abnormality. THIS REPORT CONTAINS FINDINGS THAT MAY BE CRITICAL TO PATIENT CARE. The emergent findings were commun icated to Dr. Christie Watson on 07/02/2024 7:15 PM.
[2024-07-02 19:21] LABS: Absolute Basophils 0.1 K/uL (0-0.5); Absolute Eosinophils 0.1 K/uL (0-0.5); Absolute Lymphocytes (CBC) 2.5 K/uL (0.7-4.9); Absolute Monocytes 0.6 K/uL (0.1-1.3); Absolute Neutrophil 4.9 K/uL (1.8-8.0); Basophils % 0.8 % (0-1.3); Eosinophils % 1.3 % (0-4.4); Hemoglobin 14.8 g/dL (13.6-17.9); Lymphocytes % 30.5 % (15.3-44.8); MCH 32.2 pg (27.0-35.0); MCHC 35.9 g/dL (32.0-36.0); MCV 89.7 fL (80-100); MPV 7.7 fL (7.6-11.3); Neutrophils % 60.4 % (41.7-73.7); Nucleated Red Blood Cells % 0.2 % (0-0); Platelets 207 thou/uL (152-406); RBC Red Blood Cell Count 4.61 M/uL (4.33-5.43); Red Cell Distribution Width 12.7 % (12.1-15.2)
--- NOTE | 2024-07-02 19:21 | RAD REPORT ---
EXAMINATION: Neck Angio CLINICAL INDICATION: Male, 59 years old. speech problem and right weakness TECHNIQUE: Axial CT images were obtained from the aortic arch to the skull base after intravenous con trast utilizing angiographic protocol with 3D post-processing (maximum intensity projection images, volume rendered images and/or shaded surface rendered images). One or more of the following dose redu ction techniques were used: Automated exposure control, adjustment of the mA and/or kV according to patient size, and/or iterative reconstruction. Unless otherwise specified, incidental findings do not require dedicated imaging follow-up. [id number]. NASCET criteria used. Mild 0-49% stenosis Moderate 50-69% stenosis Severe 70-99% stenosis COMPARISON: No prior exam. FINDINGS: AORTA: Atherosclerotic changes but otherwise unremarkable. RIGHT: - CCA: Patent - ICA: Atherosclerotic changes but no flow limiting stenosis. - ECA: Patent LEFT: - CCA: Patent - ICA: Atherosclerotic changes but no flow limiting stenosis. - ECA: Patent VERTEBRAL: Patent SOFT TISSUE: No significant neck soft tissue abnormalities. Emphysema. Scarring at the right lung ape x. 3D images confirm these findings. IMPRESSION: No arterial dissection or stenosis identified within the neck.
--- NOTE | 2024-07-02 19:22 | RAD REPORT ---
EXAMINATION: Head angio CLINICAL INDICATION: Male, 59 years old. STROKE ALERT TECHNIQUE: Axial CT images were obtained through the head after intravenous contrast utilizing angiog raphic protocol with 3D post-processing (maximum intensity projection images, volume rendered images and/or shaded surface rendered images). One or more of the following dose reduction technique s were used: Automated exposure control, adjustment of the mA and/or kV according to patient size, and/or iterative reconstruction. Unless otherwise specified, incidental findings do not require dedic ated imaging follow-up. COMPARISON: No prior exam. FINDINGS: RIGHT: ICA: Patent JO: Patent MCA: Patent PROFILE TRIMMER: Patent LEFT: ICA: Patent JO: Patent MCA: Patent PROFILE TRIMMER: Patent Vertebrobasilar: The vertebral arteries are patent. The basilar artery is normal in appearance. 3D images confirm these findings. IMPRESSION: No occlusion, aneurysm, or hemodynamically significant stenosis identified.
[2024-07-02 19:26] LABS: PT Prothrombin Time 12.6 SECONDS (10-13.0); PTT, Activated Partial Thromb 34.3 SECONDS (27.2-37.4); Protime INR 1.11
[2024-07-02 19:35] LABS: Hematocrit 42.3 % (39.6-49.0)
[2024-07-02] MEDS ORDERED: TENECTEPLASE 50 MG/10 ML VIAL IV ONE (19:38)
[2024-07-02 19:39] LABS: Anion Gap 7.8 mEq/L (5.0-15.0); Potassium 3.8 mEq/L (3.5-5.1); Troponin High Sensitivity 4.7 pg/mL (<58.9)
--- NOTE | 2024-07-02 19:58 | RAD REPORT ---
EXAM: Chest Single View HISTORY: 59 years Male stroke alert COMPARISON: 01/17/2019 FINDINGS: LUNGS/PLEURA: Emphysema. Right apical scarring. No acute process otherwise. CARDIAC/MEDIASTINUM: Upper limits of normal in size. UPPER ABDOMEN: No significant abnormality. BONES: No acute abnormality. LINES/TUBES/OTHER: N/A IMPRESSION: No evidence of acute cardiopulmonary disease.
[2024-07-02] MEDS ORDERED: MORPHINE 2 MG/ML SYR ONE (19:59)
[2024-07-02] MEDS ORDERED: ONDANSETRON 4 MG/2 ML VIAL ONE (19:59)
--- NOTE | 2024-07-02 20:11 | ER ---
Nurse's Notes [facility] Name: Charis Malcolm Age: 59 yrs Sex: Male : 1965 Arrival Date: 07/02/2024 Time: 18:52 Bed 4 Private MD: Diagnosis: Cerebral infarction, unspecified;Dysarthria following cerebral infarction;Weakness Presentation: 07/02 18:52 Chief complaint: Spouse and/or significant other states: patient was having difficulty ap3 forming words some time today. exact last known well is unknown at this time. code stroke called at 1859. Coronavirus screen: At this time, the client does not indicate any symptoms associated with coronavirus-19. Ebola Screen: No symptoms or risks identified at this time. Risk Assessment: Do you want to hurt yourself or someone else? Patient reports no desire to harm self or others. 18:52 Method Of Arrival: Ambulatory ap3 18:52 Acuity: ARMANI 2 ap3 19:10 The patients blood glucose was checked before arriving to the hospital and was found to al5 be normal. 19:10 Initial Sepsis Screen: Does the patient meet any 2 criteria? No. Patient's initial al5 sepsis screen is negative. Does the patient have a suspected source of infection? No. Patient's initial sepsis screen is negative. Onset of symptoms was July 02, 2024. Triage Assessment: 20:50 The onset of the patients symptoms was July 02, 2024 at 16:30. al5 Stroke Activation: Physician: ED Attending; Name: ; Notified At: 18:59; Arrived At: Physician: Mid-Level Provider; Name: ; Notified At: 18:59; Arrived At: Physician: [not used]; Name: ; Notified At: ; Arrived At: Physician: [not used]; Name: ; Notified At: ; Arrived At: Physician: [not used]; Name: ; Notified At: ; Arrived At: Historical: - Allergies: 20:16 Levaquin; al5 - Home Meds: 20:16 albuterol sulfate 2.5 mg /3 mL (0.083 %) inhalation Solution for Nebulization as needed al5 for chronic obstructive pulmonary disease [Active]; Mucinex Sinus-Max 0.05 % intranasal spray, non-aerosol 1 sprays daily for nasal congestion [Active]; Zyrtec 10 mg Oral tablet 1 tab daily [Active]; roflumilast 500 mcg oral tablet daily [Active]; pantoprazole 40 mg oral tablet, delayed release (enteric coated) 1 tab daily [Active]; amlodipine 5 mg tablet 1 tab daily for hypertension [Active]; atorvastatin 40 mg oral tablet 1 tab daily [Active]; clonidine HCl 0.3 mg Oral tablet 0.3 mg 2 times per day for hypertension [Active]; folic acid 1 mg Oral tablet 1 tab daily [Active]; furosemide 40 mg Oral tablet 1 tab daily [Active]; allopurinol 100 mg Oral tablet 100 mg daily [Active]; spironolactone 25 mg Oral tablet 1 tab daily for feet swelling [Active]; Jatenzo 198 mg oral capsule 1 cap 2 times per day [Active]; irbesartan 300 mg oral tablet 1 tab bedtime [Active]; potassium chloride 10 mEq Oral tablet, extended release 1 tab bedtime [Active]; gabapentin 300 mg oral capsule 1 cap every day at bedtime [Active]; semaglutide 1 mg/0.2 mL subcutaneous Syringe every week on friday [Active]; ipratropium bromide 0.02 % inhalation solution twice a day for 0.06% [Active]; - PMHx: 20:16 Hypertensive disorder; Hypercholesterolemia; Chronic obstructive lung disease; al5 Transient cerebral ischemia; fatty liver disease; Gastroesophageal reflux disease; - PSHx: 20:16 Cholecystectomy; hernia repair; al5 - Immunization history:: Adult Immunizations up to date. - Infectious Disease History:: Denies. - Family history:: not pertinent. - Hospitalizations: : No recent hospitalization is reported. - Social history:: Smoking status: unknown. Screenin:07 [facility] ED Fall Risk Assessment (Adult) History of falling in the last 3 months, al5 including since admission No falls in past 3 months (0 pts) Confusion or Disorientation No (0 pts) Intoxicated or Sedated No (0 pts) Impaired Gait Yes (1 pt) Mobility Assist Device Used No (0 pt) Altered Elimination No (0 pt) Score/Fall Risk Level 0 - 2 = Low Risk Oriented to surroundings, Maintained a safe environment, Hourly rounding (assess needs \T\ fall precautionary measures) done. Abuse screen: Denies threats or abuse. Denies injuries from another. Nutritional screening: No deficits noted. Tuberculosis screening: No symptoms or risk factors identified. Assessment: 18:59 Reassessment: Code stroke called, pt transported to CT via stretcher with Kat Aguilar RN. jl7 19:33 VAN Scoring: Arm Drift: Minor drift Visual Disturbance: No visual disturbance noted. al5 Aphasia: No aphasia noted. Neglect: No neglect noted. Kaycee Swallow Protocol Exclusion Criteria: NPO for medical/surgical reason by provider order Yes Brief Cognitive Screen What is your name? Normal, Where are you right now? Normal, What year is it? Normal. Oral Mechanism Examination Facial Symmetry: Normal, Motion: Normal, Lip Closure: Normal, Oral Mechanism Result: Normal. Result: FAIL MD Notified: Yann Watson MD. TNKase (Tenecteplase) Screening: Indications: Definite evidence of stroke, ischemic, embolic, or hypertensive: Yes. Treatment will start within 4.5 hours onset of symptoms: Yes. No evidence of intracranial hemorrhage or CT of head and no evidence of peripheral hemorrhage or recent CVA: Yes. Consent for thrombolytic therapy: Yes. 19:33 General: Appears in no apparent distress. comfortable, Behavior is calm, cooperative. al5 Pain: Complains of pain in head. Neuro: Level of Consciousness is awake, alert, obeys commands, Oriented to person, place, time, situation, Moves all extremities. Weakness in right arm(s) leg(s) Speech slight dysarthria. Pupils are PERRLA, Pupil Size: 2 Intact. Cardiovascular: Capillary refill < 3 seconds Patient's skin is warm and dry. Rhythm is sinus rhythm. Respiratory: Airway is patent Respiratory effort is even, unlabored, Respiratory pattern is regular, symmetrical. GI: No signs and/or symptoms were reported involving the gastrointestinal system. : No signs and/or symptoms were reported regarding the genitourinary system. EENT: No signs and/or symptoms were reported regarding the EENT system. Derm: Skin is intact, is healthy with good turgor, Skin is pink, warm \T\ dry. normal. Musculoskeletal: weakness in R leg. Vital Signs: 19:19 BP 161 / 99; Pulse 86; Resp 17; Pulse Ox 100% on R/A; ap3 19:36 Weight 89.81 kg; cp4 19:45 BP 159 / 89; Pulse 87; Resp 16; Temp 98.7; Pulse Ox 98% on R/A; al5 19:47 al5 19:47 see TNK flow sheet for vitals al5 NIH Stroke Scale Scores: 19:07 NIHSS Score: 3 al5 19:26 NIHSS Score: 3 learning and development specialist Course: 18:58 Patient arrived in ED. mr 18:59 Yann Watson MD is Attending Physician. rn 18:59 Arm band placed on right wrist. Patient placed in the treatment room, in view of staff al5 members, on pulse oximetry. 19:06 Aileen Georges, RN is Primary Nurse. ph 19:06 Kat Jorgensen, RN is Primary Nurse. al5 19:07 No provider procedures requiring assistance completed. al5 19:09 Inserted saline lock: 18 gauge in right antecubital area, using aseptic technique. cp4 Blood collected. Flushed with 10 mL NS. 19:15 CT Stroke Brain w/o Contrast In Process Unspecified. EDMS 19:17 CT Head Angio In Process Unspecified. EDMS 19:17 CT Neck Angio In Process Unspecified. EDMS 19:23 Triage completed. ap3 19:28 EKG done, by instructor adjunct surgical technician. reviewed by Yann Watson MD. oh1 19:33 Patient has correct armband on for positive identification. Placed in gown. Bed in low al5 position. Call light in reach. Side rails up X2. Provided Education on: plan of care, TNK medication consent. 19:41 Stroke CXR 1 View In Process Unspecified. EDMS 20:10 Sherif Pennington MD is Hospitalizing Provider. rn 21:57 Patient admitted, IV remains in place. al5 Administered Medications: 19:47 Drug: TNK FOR STROKE - Tenecteplase IV (Administer 10 ml NS flush BEFORE and al5 AFTER tenecteplase) 0.25 mg/kg IV at per protocol once; 0.25mg/kg, MAX DOSE 25 mg, IVP over 5 seconds {Co-Signature: cp4 (Karol Story).} Route: IV; Rate: per protocol; Site: right antecubital; 20:51 Follow up: Response: No adverse reaction; IV Status: Completed infusion; IV Intake: al5 4.4ml 20:02 Drug: morphine IVP or IV 2 mg IVP once over 4 mins Route: IVP; Infused Over: 4 mins; al5 Site: right antecubital; 20:53 Follow up: Response: No adverse reaction; Pain is decreased al5 20:02 Drug: Ondansetron IVP 4 mg IVP once; over 2 minutes Route: IVP; Site: right antecubital;al5 20:53 Follow up: Response: No adverse reaction al5 Medication: 19:07 VIS not applicable for this client. al5 Point of Care Testing: Blood Glucose: 19:10 Blood Glucose: 86 mg/dL; al5 Ranges: Intake: 20:51 IV: 4ml; Total: 4ml. al5 Outcome: 20:11 Decision to Hospitalize by Provider. rn 21:57 Admitted to ICU accompanied by nurse, family with patient, via stretcher, room icu 3, al5 on monitor, with chart, 21:57 Condition: stable 21:57 Instructed on the need for admit, 22:21 Patient left the ED. al5 NIH Stroke Scale - NIH Stroke Score Date: 07/02/2024 Time: 19:07 Total Score = 3 10. Dysarthria (speech clarity - read or repeat words) - 1(Mild to Moderate) 11. Extinction and Inattention (visual/tactile/auditory/spatial/personal) - 0(No abnormality) 1a. Level of Consciousness (LOC) - 0(Alert) 1b. Level of Consciousness (LOC) (Month \T\ Age) - 0(Both) 1c. LOC Commands (Open \T\ Closes Eyes/Shipyard Laborer) - 0(Both) 2. Best Gaze (Lateral Gaze Paresis) - 0(Normal) 3. Visual Field Loss - 0(No visual loss) 4. Facial Palsy - 0(Normal) 5a. Left Arm: Motor (10-second hold) - 0(No drift) 5b. Right Arm: Motor (10-second hold) - 1(Drift) 6a. Left Leg: Motor (5-second hold - always test supine) - 0(No drift) 6b. Right Leg: Motor (5-second hold - always test supine) - 1(Drift) 7. Limb Ataxia (finger/nose \T\ heel/cohen - test with eyes open) - 0(Absent) 8. Sensory Loss (pinprick arms/legs/face) - 0(Normal) 9. Best Language: Aphasia (description/naming/reading) - 0(No aphasia) Initials: al5 NIH Stroke Scale - NIH Stroke Score Date: 07/02/2024 Time: 19:26 Total Score = 3 10. Dysarthria (speech clarity - read or repeat words) - 1(Mild to Moderate) 11. Extinction and Inattention (visual/tactile/auditory/spatial/personal) - 0(No abnormality) 1a. Level of Consciousness (LOC) - 0(Alert) 1b. Level of Consciousness (LOC) (Month \T\ Age) - 0(Both) 1c. LOC Commands (Open \T\ Closes Eyes/Shipyard Laborer) - 0(Both) 2. Best Gaze (Lateral Gaze Paresis) - 0(Normal) 3. Visual Field Loss - 0(No visual loss) 4. Facial Palsy - 0(Normal) 5a. Left Arm: Motor (10-second hold) - 0(No drift) 5b. Right Arm: Motor (10-second hold) - 1(Drift) 6a. Left Leg: Motor (5-second hold - always test supine) - 0(No drift) 6b. Right Leg: Motor (5-second hold - always test supine) - 1(Drift) 7. Limb Ataxia (finger/nose \T\ heel/cohen - test with eyes open) - 0(Absent) 8. Sensory Loss (pinprick arms/legs/face) - 0(Normal) 9. Best Language: Aphasia (description/naming/reading) - 0(No aphasia) Initials: rn Signatures: Dispatcher [employer] [facility] RyanVerna, [facility] Reg mr Yann Watson MD MD rn Hall, Patricia, RN RN ph Leal, Jahala, RN RN jl7 Kat Garcia RN RN ap3 Potter, Christina cp4 Kat Jorgensen RN RN al5 Angelica Starr oh1 Karol Story cp4
--- NOTE | 2024-07-02 20:12 | EDPHYS ---
Physician Documentation [facility] Name: Charis Malcolm Age: 59 yrs Sex: Male : 1965 Arrival Date: 07/02/2024 Time: 18:52 Bed 4 Private MD: ED Physician Yann Watson HPI: 07/02 20:04 This 59 yrs old Male presents to ER via Ambulatory with complaints of S/S of Possible rn Stroke. 20:04 The patient's problem is reported as dysphasia, weakness, in the right upper extremity, rn in the right lower extremity. Onset: The symptoms/episode began/occurred just prior to arrival. The symptoms are alleviated by nothing. The symptoms are aggravated by nothing. Severity of symptoms: At their worst the symptoms were moderate. The patient has not experienced similar symptoms in the past. Patient reports and reports difficulty speaking and getting his words out along with right-sided weakness that started around 420 or 430 p.m. They know timing because they went to a clinic appointment and left at 330 and was still normal and stopped at [place] around 4:20 PM. actually states could have happened in the last hour or so but patient is not so sure. Patient reports woke up today feeling fine and felt fine earlier. Does report felt something similar a few days ago but returned completely back to normal without neurological deficits. Has never had a stroke or heart attack before.. Historical: - Allergies: 20:16 Levaquin; al5 - Home Meds: 20:16 albuterol sulfate 2.5 mg /3 mL (0.083 %) inhalation Solution for Nebulization as needed al5 for chronic obstructive pulmonary disease [Active]; Mucinex Sinus-Max 0.05 % intranasal spray, non-aerosol 1 sprays daily for nasal congestion [Active]; Zyrtec 10 mg Oral tablet 1 tab daily [Active]; roflumilast 500 mcg oral tablet daily [Active]; pantoprazole 40 mg oral tablet, delayed release (enteric coated) 1 tab daily [Active]; amlodipine 5 mg tablet 1 tab daily for hypertension [Active]; atorvastatin 40 mg oral tablet 1 tab daily [Active]; clonidine HCl 0.3 mg Oral tablet 0.3 mg 2 times per day for hypertension [Active]; folic acid 1 mg Oral tablet 1 tab daily [Active]; furosemide 40 mg Oral tablet 1 tab daily [Active]; allopurinol 100 mg Oral tablet 100 mg daily [Active]; spironolactone 25 mg Oral tablet 1 tab daily for feet swelling [Active]; Jatenzo 198 mg oral capsule 1 cap 2 times per day [Active]; irbesartan 300 mg oral tablet 1 tab bedtime [Active]; potassium chloride 10 mEq Oral tablet, extended release 1 tab bedtime [Active]; gabapentin 300 mg oral capsule 1 cap every day at bedtime [Active]; semaglutide 1 mg/0.2 mL subcutaneous Syringe every week on friday [Active]; ipratropium bromide 0.02 % inhalation solution twice a day for 0.06% [Active]; - PMHx: 20:16 Hypertensive disorder; Hypercholesterolemia; Chronic obstructive lung disease; al5 Transient cerebral ischemia; fatty liver disease; Gastroesophageal reflux disease; - PSHx: 20:16 Cholecystectomy; hernia repair; al5 - Immunization history:: Adult Immunizations up to date. - Infectious Disease History:: Denies. - Family history:: not pertinent. - Hospitalizations: : No recent hospitalization is reported. - Social history:: Smoking status: unknown. ROS: 20:04 Constitutional: Negative for fever, chills, and weight loss, Cardiovascular: Negative rn for chest pain, palpitations, and edema, Respiratory: Negative for shortness of breath, cough, wheezing, and pleuritic chest pain, Abdomen/GI: Negative for abdominal pain, nausea, vomiting, diarrhea, and constipation, MS/Extremity: Negative for injury and deformity, Skin: Negative for injury, rash, and discoloration, Neuro: Positive for difficulty with speech and right-sided weakness Exam: 20:04 Radiologist reports: No acute findings per Dr. Eagle reported at 7:16 PM rn 20:04 Constitutional: This is a well developed, well nourished patient who is awake, alert, and in no acute distress. Head/Face: Normocephalic, atraumatic. 20:04 Cardiovascular: Regular rate and rhythm. No pulse deficits. Respiratory: No increased work of breathing, no retractions or nasal flaring. Abdomen/GI: Soft, non-tender MS/ Extremity: Pulses equal, no cyanosis. Neurovascular intact. Full, normal range of motion. Equal circumference. Neuro: Awake and alert, GCS 15. Oriented to person place and time. Cranial nerves II through XII grossly intact. Right arm and right leg drift noted with leg drift worse than arm. Dysarthria noted. NIH 3. Vital Signs: 19:19 BP 161 / 99; Pulse 86; Resp 17; Pulse Ox 100% on R/A; ap3 19:36 Weight 89.81 kg; cp4 19:45 BP 159 / 89; Pulse 87; Resp 16; Temp 98.7; Pulse Ox 98% on R/A; al5 19:47 al5 19:47 see TNK flow sheet for vitals al5 NIH Stroke Scale Scores: 19:07 NIHSS Score: 3 al5 19:26 NIHSS Score: 3 rn MDM: 18:59 Medical Screening Exam initiated rn 19:06 ED course: states last known normal between 3:30 - 4:30. Pt had appointment today rn and left at 3:30 and was at his baseline without symptoms yet. She states they had popeyes at 4:20 and still seemed fine. Explained to her the importance of timing if we are giving TNKase and she understands. . 19:24 ED course: Patient back in room and agrees with . Patient reports onset of symptoms rn approximately 4:30 PM. Will use last normal as 4:20 PM.. 19:29 ED course: Discussed case with Dr. Pendleton, recommends TNK administration. I spoke at rn length with patient regarding risks and benefits of TNK as well as spouse who is in the room and they both agree to receive TNK. No recent procedure or trauma. No recent bleeding noted. Does not take blood thinners. Spouse reports the liver disease she mention earlier is "early fatty liver disease".. 20:04 Differential diagnosis: CVA, TIA, metabolic disorder. TNKase (Tenecteplase) Screening: rn Indications: Definite evidence of stroke, ischemic, embolic, or hypertensive: Yes. Treatment will start within 4.5 hours onset of symptoms: Yes. No evidence of intracranial hemorrhage or CT of head and no evidence of peripheral hemorrhage or recent CVA: Yes. Consent for thrombolytic therapy: Yes. Data reviewed: vital signs, nurses notes, lab test result(s), EKG, radiologic studies, CT scan, and as a result, I will admit patient. Consideration of Admission/Observation Patient was admitted/placed on observation. Escalation of care including admission/observation considered. Counseling: I had a detailed discussion with the patient and/or guardian regarding the historical points, exam findings, and any diagnostic results supporting the discharge/admit diagnosis, lab results, radiology results, the need for further work-up and treatment in the hospital. ED course: I personally spent 35 minutes engaged in work directly related to the individual patient's care. This does not include any time spent performing procedures. The patient has been deemed critically ill because of acute cerebral infarction requiring TNK administration. 20:31 ED course: Patient doing much better. Speech is clear without dysarthria noted, right rn upper extremity drift is now absent right lower extremity still appears weak. 07/02 19:00 Order name: Basic Metabolic Panel; Complete Time: 20:03 rn 07/02 19:00 Order name: CBC with Diff; Complete Time: 20:03 rn 07/02 19:00 Order name: High Sensitivity Troponin; Complete Time: 20:03 rn 07/02 19:00 Order name: Protime (+inr); Complete Time: 19:29 rn 07/02 19:00 Order name: Ptt, Activated; Complete Time: 19:29 rn 07/02 19:33 Order name: Glucose, Ancillary Testing; Complete Time: 20:03 EDMS 07/02 20:39 Order name: CBC with Automated Diff EDMS 07/02 20:39 Order name: CBC with Automated Diff EDMS 07/02 20:39 Order name: Comprehensive Metabolic Panel EDAL 07/02 20:39 Order name: Comprehensive Metabolic Panel EDAL 07/02 20:39 Order name: Lipid Profile EDAL 07/02 20:39 Order name: Lipid Profile EDAL 07/02 19:00 Order name: CT Head Angio; Complete Time: 19:25 rn 07/02 19:00 Order name: CT Neck Angio; Complete Time: 19:25 rn 07/02 19:00 Order name: CT Stroke Brain w/o Contrast; Complete Time: 19:25 rn 07/02 19:00 Order name: Stroke CXR 1 View; Complete Time: 20:03 rn 07/02 20:39 Order name: Echo with Doppler EDMS 07/02 19:00 Order name: EKG; Complete Time: 19:01 rn 07/02 20:39 Order name: CONS Physician Consult EDAL 07/02 20:39 Order name: IRF Screen EDAL 07/02 20:39 Order name: Physical Therapy Consult EDMS 07/02 20:39 Order name: Speech Therapy Consult [facility] 07/02 19:00 Order name: Accucheck; Complete Time: 19:28 rn 07/02 19:00 Order name: Cardiac monitoring; Complete Time: 19:23 rn 07/02 19:00 Order name: EKG - Nurse/Tech; Complete Time: 19:28 rn 07/02 19:00 Order name: IV Saline Lock; Complete Time: : rn 07/02 19:00 Order name: Labs collected and sent; Complete Time: : rn 07/02 19:00 Order name: NPO; Complete Time: : rn 07/02 19:00 Order name: O2 Per Protocol; Complete Time: : rn 07/02 19:00 Order name: O2 Sat Monitoring; Complete Time: : rn 07/02 19:00 Order name: Stroke Swallow Screen; Complete Time: 19:44 rn Administered Medications: 19:47 Drug: TNK FOR STROKE - Tenecteplase IV (Administer 10 ml NS flush BEFORE and al5 AFTER tenecteplase) 0.25 mg/kg IV at per protocol once; 0.25mg/kg, MAX DOSE 25 mg, IVP over 5 seconds {Co-Signature: cp4 (Alfredo Story.} Route: IV; Rate: per protocol; Site: right antecubital; 20:51 Follow up: Response: No adverse reaction; IV Status: Completed infusion; IV Intake: al5 4.4ml 20:02 Drug: morphine IVP or IV 2 mg IVP once over 4 mins Route: IVP; Infused Over: 4 mins; al5 Site: right antecubital; 20:53 Follow up: Response: No adverse reaction; Pain is decreased al5 20:02 Drug: Ondansetron IVP 4 mg IVP once; over 2 minutes Route: IVP; Site: right antecubital;al5 20:53 Follow up: Response: No adverse reaction al5 Point of Care Testing: Blood Glucose: 19:10 Blood Glucose: 86 mg/dL; al5 Ranges: Critical Glucose Levels:Adult <50 mg/dl or >400 mg/dl <40 mg/dl or >180 mg/dl Disposition Summary: 07/02/24 20:11 Hospitalization Ordered Notes: Hospitalization Status: Inpatient Admission rn Provider: Sherif Pennington rn Location: Intensive Care Unit rn Condition: Stable rn Problem: new rn Symptoms: have improved rn Bed/Room Type: Standard rn Room Assignment: 2-(07/02/24 20:46) hw Diagnosis - Cerebral infarction, unspecified rn - Dysarthria following cerebral infarction rn - Weakness rn Forms: - Medication Reconciliation Form rn - SBAR form rn - Leadership Thank You Letter harness placer time excluding procedures: 20:04 Critical care time: Bedside Care: 30 minutes, Consultation: 5 minutes. Total time: 35 rn minutes NIH Stroke Scale - NIH Stroke Score Date: 07/02/2024 Time: 19:07 Total Score = 3 10. Dysarthria (speech clarity - read or repeat words) - 1(Mild to Moderate) 11. Extinction and Inattention (visual/tactile/auditory/spatial/personal) - 0(No abnormality) 1a. Level of Consciousness (LOC) - 0(Alert) 1b. Level of Consciousness (LOC) (Month \\T\\ Age) - 0(Both) 1c. LOC Commands (Open \\T\\ Closes Eyes/Textile Stylist) - 0(Both) 2. Best Gaze (Lateral Gaze Paresis) - 0(Normal) 3. Visual Field Loss - 0(No visual loss) 4. Facial Palsy - 0(Normal) 5a. Left Arm: Motor (10-second hold) - 0(No drift) 5b. Right Arm: Motor (10-second hold) - 1(Drift) 6a. Left Leg: Motor (5-second hold - always test supine) - 0(No drift) 6b. Right Leg: Motor (5-second hold - always test supine) - 1(Drift) 7. Limb Ataxia (finger/nose \\T\\ heel/cohen - test with eyes open) - 0(Absent) 8. Sensory Loss (pinprick arms/legs/face) - 0(Normal) 9. Best Language: Aphasia (description/naming/reading) - 0(No aphasia) Initials: al5 NIH Stroke Scale - NIH Stroke Score Date: 07/02/2024 Time: 19:26 Total Score = 3 10. Dysarthria (speech clarity - read or repeat words) - 1(Mild to Moderate) 11. Extinction and Inattention (visual/tactile/auditory/spatial/personal) - 0(No abnormality) 1a. Level of Consciousness (LOC) - 0(Alert) 1b. Level of Consciousness (LOC) (Month \\T\\ Age) - 0(Both) 1c. LOC Commands (Open \\T\\ Closes Eyes/Textile Stylist) - 0(Both) 2. Best Gaze (Lateral Gaze Paresis) - 0(Normal) 3. Visual Field Loss - 0(No visual loss) 4. Facial Palsy - 0(Normal) 5a. Left Arm: Motor (10-second hold) - 0(No drift) 5b. Right Arm: Motor (10-second hold) - 1(Drift) 6a. Left Leg: Motor (5-second hold - always test supine) - 0(No drift) 6b. Right Leg: Motor (5-second hold - always test supine) - 1(Drift) 7. Limb Ataxia (finger/nose \\T\\ heel/cohen - test with eyes open) - 0(Absent) 8. Sensory Loss (pinprick arms/legs/face) - 0(Normal) 9. Best Language: Aphasia (description/naming/reading) - 0(No aphasia) Initials: rn Signatures: Dispatcher [employer] EDYann Green MD MD rn Langhorst, Amanda, RN RN al5 Ivett Nichole Christina cp4 Corrections: (The following items were deleted from the chart) 19: 19:00 BASIC METABOLIC PANEL+C.LAB.BRZ ordered. EDMS EDMS : 19:00 CBC+H.LAB.BRZ ordered. EDMS EDMS : 19:00 Troponin High Sensitivity+C.LAB.BRZ ordered. EDMS EDMS : 19:00 PROTIME (+INR)+COAG.LAB.BRZ ordered. EDMS EDMS : 19:00 PTT, ACTIVATED+COAG.LAB.BRZ ordered. EDMS EDMS 20:46 20:11 rn emily
[2024-07-02] MEDS ORDERED: ONDANSETRON 4 MG/2 ML VIAL IV PRN (20:31)
--- NOTE | 2024-07-02 21:21 | P.HP ---
Certification for Inpatient Patient admitted to: Inpatient With expected LOS: >2 Midnights Practitioner: I am a practitioner with admitting privileges, knowledge of patient current condition, hospital course, and medical plan of care. Services: Services provided to patient in accordance with Admission requirements found in Title 42 Section 412.3 of the Code of Federal Regulations Patient History Date of Service: 07/02/24 Reason for admission: Code Stroke History of Present Illness: 59 yrs old Male with past medical history of hypertension, hyperlipidemia who presented to the ER with dysphagia and weakness in the right upper extremity and right lower extremity which started just prior to the presentation. Insidious in onset, denies any chest pain or shortness of breath. Denies any palpitation. No previous history of atrial fibrillation or any arrhythmias. Patient and reports difficulty speaking and getting his words out along with right-sided weakness that started around 420 or 430 p.m. Does report felt something similar a few days ago but returned completely back to normal without any neurological deficits. No previous history of CAD Patient was assessed in the ER and had a stroke code and was started on TNK and was admitted for further management Allergies levofloxacin [From Levaquin] Allergy (Verified 07/02/24 22:20) Hives/Rash - Past Medical/Surgical History Past Medical History: Reviewed- Non-Contributory -: Hypertension, hyperlipidemia Past Surgical History: Reviewed- Non-Contributory - Social History Smoking Status: Never smoker Review of Systems 10-point ROS is otherwise unremarkable Physical Examination - Vital Signs Temperature: 97.8 F Blood Pressure: 162/92 Pulse: 76 Respirations: 18 Pulse Ox (%): 94 - Physical Exam General: Alert, Oriented x3, Cooperative HEENT: Atraumatic, Normocephalic Neck: Supple Respiratory: Clear to auscultation bilaterally, Normal air movement Cardiovascular: Regular rate/rhythm, Normal S1 S2 Capillary refill: <2 Seconds Gastrointestinal: Soft and benign, W/out hepatosplenomegaly Musculoskeletal: No clubbing, No swelling Integumentary: No rashes, No breakdown Neurological: Other (Alert awake, right-sided weakness, no sensory deficit) Lymphatics: No axilla or inguinal lymphadenopathy - Studies Laboratory Data (last 24 hrs) 07/02/24 07/02/24 07/02/24 19:09 19:09 19:09 WBC 8.10 Hgb 14.8 Hct 42.3 Plt Count 207 PT 12.6 INR 1.11 APTT 34.3 Sodium 139 Potassium 3.8 BUN 24 H Creatinine 1.59 H Glucose 101 Assessment and Plan - Plan Acute CVA Right sided weakness CT CTA findings noted Status post TNK Admitted to ICU NIH scale serially MRI brain ordered Monitor neuro vital signs Monitor under telemetry Neurology consulted Will get a stroke workup with echocardiogram Hypertension Antihypertensives titrated Continue home medications and titrate as needed Permissible hypertension for now Hyperlipidemia Continue statin Acute kidney injury Monitor renal parameters Electrolytes monitor and replace accordingly GI/DVT prophylaxis Advanced directive full code Discharge Plan: Home Plan to discharge in: 48 Hours - Advance Directives Does patient have a Living Will: No Does patient have a Durable POA for Healthcare: No - Code Status/Comfort Care Code Status: Full Code Time Spent Managing Pts Care (In Minutes): 48
[2024-07-02] MEDS: NA CHLORIDE 0.9% 1,000 ML IV SCH (22:30)
[2024-07-02] MEDS: ACETAMINOPHEN 500 MG TAB PO PRN (22:31)
[2024-07-02] MEDS: ATORVASTATIN 20 MG TAB PO SCH (22:34)
[2024-07-03 00:13] VITALS: BMI 33.7
[2024-07-03 05:41] LABS: Absolute Lymphocytes (CBC) 2.3 K/uL (0.7-4.9); Absolute Monocytes 0.7 K/uL (0.1-1.3); Absolute Neutrophil 5.8 K/uL (1.8-8.0); Basophils % 0.5 % (0-1.3); Eosinophils % 0.4 % (0-4.4); Hematocrit 40.9 % (39.6-49.0); Hemoglobin 14.6 g/dL (13.6-17.9); Lymphocytes % 26.1 % (15.3-44.8); MCH 32.4 pg (27.0-35.0); MCHC 35.7 g/dL (32.0-36.0); MCV 90.7 fL (80-100); MPV 8.1 fL (7.6-11.3); Monocytes % 7.4 % (3.3-12.3); Neutrophils % 65.6 % (41.7-73.7); Platelets 182 thou/uL (152-406); RBC Red Blood Cell Count 4.51 M/uL (4.33-5.43); Red Cell Distribution Width 12.7 % (12.1-15.2)
[2024-07-03 05:57] LABS: Albumin 3.6 g/dL (3.4-5.0); Albumin/Globulin Ratio 1.1 (1.1-1.8); Anion Gap 11.1 mEq/L (5.0-15.0); Bilirubin Total 0.6 mg/dL (0.2-1.0); Globulin 3.3 g/dL (2.3-3.5); Potassium 4.1 mEq/L (3.5-5.1); Protein, Total 6.9 g/dL (6.4-8.2)
[2024-07-03] MEDS: Budesonide/Glycopyr/Formoterol [Breztri Aerosphere Inhaler] 10.7 GM Hfa *PT OWN MED IH SCH (12:39)
[2024-07-03] MEDS: ALBUTEROL INHALER 200 PUFF/6.7 GM IH SCH (13:00)
[2024-07-03] MEDS: PANTOPRAZOLE 40MG TABLET PO SCH (13:33)
--- NOTE | 2024-07-03 18:07 | P.DS ---
Admission Date: 07/02/24 Discharge Date: 07/03/24 Disposition: ROUTINE DISCHARGE Discharge Condition: FAIR Reason for Admission: Code Stroke Brief History of Present Illness: 59 yrs old Male with past medical history of hypertension, hyperlipidemia presented to the ER with dysphagia and weakness in the right upper extremity and right lower extremity which started just prior to the presentation. No previous history of atrial fibrillation or any arrhythmias. Patient and reports patient had difficulty speaking and getting his words out along with right-sided weakness. Stroke protocol initiated in the ED, head CT, CTA head and neck all unremarkable. Patient was given TNKase and admitted to the ICU for further management. Hospital Course: Diagnosis Acute CVA Essential hypertension COPD-stable. Chronic kidney disease stage III Patient's neurologic symptoms resolved during the hospital stay. Right-sided weakness resolved, patient had no problem with speech, he had no problem with ambulation. He was evaluated by physical therapy and speech therapy and deemed to have no further needs for therapy. Repeat CT head.. Patient with stable vitals. Case discussed with neurology Dr. Calderon and patient deemed stable for discharge on aspirin, Plavix, folic acid. Lipid profile showed LDL of 78 His Lipitor home dose has been increased from 40 mg to 80 mg daily. Patient educated on permissive hypertension, and advised only to take his antihypertensives if his systolic blood pressure goes above 180 for the next 4 days after which he should take his home antihypertensives daily for target systolic blood pressure of less than 130. Patient voiced understanding. Vital Signs/Physical Exam: Temp Pulse Resp BP Pulse Ox 97.8 F 87 24 H 135/80 97 07/03/24 16:00 07/03/24 17:00 07/03/24 17:00 07/03/24 17:00 07/03/24 17:00 General: Alert, In no apparent distress, Oriented x3 HEENT: Mucous membr. moist/pink Neck: Supple, JVD not distended Respiratory: Clear to auscultation bilaterally, Normal air movement Cardiovascular: No edema, Regular rate/rhythm, Normal S1 S2 Gastrointestinal: Normal bowel sounds, Soft and benign, Non-distended, No tenderness Musculoskeletal: No swelling Integumentary: No rashes, No cyanosis Neurological: Normal strength at 5/5 x4 extr Laboratory Data at Discharge: WBC 8.90 thou/uL (4.3-10.9) 07/03/24 05:20 Hgb 14.6 g/dL (13.6-17.9) 07/03/24 05:20 Hct 40.9 % (39.6-49.0) 07/03/24 05:20 Plt Count 182 thou/uL (152-406) 07/03/24 05:20 PT 12.6 SECONDS (10-13.0) 07/02/24 19:09 INR 1.11 07/02/24 19:09 APTT 34.3 SECONDS (27.2-37.4) 07/02/24 19:09 Sodium 141 mEq/L (136-145) 07/03/24 05:20 Potassium 4.1 mEq/L (3.5-5.1) 07/03/24 05:20 BUN 20 mg/dL (7-18) H 07/03/24 05:20 Creatinine 1.40 mg/dL (0.70-1.30) H 07/03/24 05:20 Glucose 112 mg/dL (74-106) H 07/03/24 05:20 Total Bilirubin 0.6 mg/dL (0.2-1.0) 07/03/24 05:20 AST 17 U/L (15-37) 07/03/24 05:20 ALT 43 U/L (16-61) 07/03/24 05:20 Alkaline Phosphatase 112 U/L (45-117) 07/03/24 05:20 Triglycerides 166 mg/dL (<150) H 07/03/24 05:20 Cholesterol 135 mg/dL (<200) 07/03/24 05:20 HDL Cholesterol 24 mg/dL (40-60) L 07/03/24 05:20 Cholesterol/HDL Ratio 5.63 07/03/24 05:20 Home Medications: Allopurinol 100 mg PO DAILY 07/02/24 Amlodipine [Norvasc*] 5 mg PO DAILY 07/02/24 Cetirizine HCl [Zyrtec] 10 mg PO DAILY 07/02/24 Folic Acid 1 mg PO DAILY 07/02/24 Furosemide [Lasix*] 40 mg PO DAILY 07/02/24 Gabapentin 300 mg PO BEDTIME 07/02/24 Ipratropium [Atrovent 0.03% (21MCG)/Beach Nasal*] 0.06 % AMY BID 07/02/24 Irbesartan 300 mg PO BEDTIME 07/02/24 Pantoprazole [Protonix Tab*] 40 mg PO DAILY 07/02/24 Potassium Chloride 10 meq PO BEDTIME 07/02/24 Roflumilast 500 mcg PO DAILY 07/02/24 Semaglutide [Wegovy] 1 mg SQ EVERY 7TH DAY 07/02/24 Spironolactone [Aldactone*] 25 mg PO DAILY 07/02/24 cloNIDine HCL [Catapres*] 0.3 mg PO BID 07/02/24 Albuterol 2 puff IH BID 07/03/24 Aspirin [Aspirin EC] 81 mg PO DAILY #30 tab 07/03/24 Atorvastatin Calcium 80 mg PO DAILY #60 tab 07/03/24 Benzocaine/Menthol [Mucinex Insta Kick 5%-2% Beach] 1 spray AMY DAILY 07/03/24 Budesonide/Glycopyr/Formoterol [Breztri Aerosphere Inhaler] 2 puff IH BID 07/03/24 Clopidogrel Bisulfate [Plavix] 75 mg PO DAILY #30 tab 07/03/24 New Medications: Aspirin [Aspirin EC] 81 mg PO DAILY #30 tab Atorvastatin Calcium 80 mg PO DAILY #60 tab Clopidogrel Bisulfate [Plavix] 75 mg PO DAILY #30 tab Physician Discharge Instructions: Patient presented to the ER weakness in the right upper extremity and right lower extremity and difficulty finding words which started just prior to the presentation. Stroke protocol initiated in the ED, head CT, CTA head and neck all unremarkable. CT head did not show any acute stroke or hemorrhage. CTA head and neck did not show any significant occlusion to warrant vascular intervention. Patient's neurologic symptoms resolved during the hospital stay. Right-sided weakness resolved, patient had no problem with speech, he had no problem with ambulation. He was evaluated by physical therapy and speech therapy and deemed to have no further needs for therapy. Repeat CT head.. Patient with stable vitals. No cardiac arrhythmia on telemetry. Case discussed with neurology Dr. Calderon and patient deemed stable for discharge on aspirin, Plavix, folic acid. Lipid profile showed LDL of 78 His Lipitor home dose has been increased from 40 mg to 80 mg daily. Patient educated on permissive hypertension, and advised only to take his antihypertensives if his systolic blood pressure goes above 180 for the next 4 days after which he should take his home antihypertensives daily for a target systolic blood pressure of less than 130. Patient advised to take aspirin and Plavix for 1 month, after which she can stop taking the Plavix and continue aspirin for life. Patient advised he will need his lipid profile rechecked in 3 months to make sure LDL is below target of 70. Diet: AHA Activity: Ad peter Followup: Geovanny Calderon MD [ASSOCIATE-ACTIVE - CAN ADMIT] - 1-2 Weeks NONE,NONE [Primary Care Provider] - 1-2 Weeks
--- NOTE | 2024-07-03 19:48 | RAD REPORT ---
EXAM: CT brain without contrast HISTORY: 24Hr Post TNK COMPARISON: 07/02/2024 TECHNIQUE: Multiple contiguous axial images were obtained and a CT of the brain without contrast. Sag ittal and coronal reformats were performed. One or more of the following dose reduction techniques were used: Automated exposure control, adjust ment of the mA and/or kV according to patient size, and/or iterative reconstruction. FINDINGS: No evidence of hydrocephalus, intracranial hemorrhage, or extra-axial fluid collection. The brain is normal in morphology. No evidence of midline shift or areas of brain edema. The calvarium is intact. The visualized paranasal sinuses and mastoid air cells are essentially clear . IMPRESSION: No evidence of acute intracranial abnormality.
[2024-07-03] MEDS: GABAPENTIN 300 MG CAP PO SCH (19:58)
[2024-07-03] MEDS: ASPIRIN EC 81 MG TAB PO SCH (19:58)
[2024-07-03] MEDS: CLOPIDOGREL 75 MG TABLET PO SCH (19:59)
[2024-07-03] MEDS: IPRATROPIUM NAS SCH (20:06)
[2024-07-03 20:11] VITALS: O2SAT 97
--- NOTE | 2024-07-03 20:36 | CON ---
Reason For Consultation: Consultation called because of History Of Present Illness: Mr. Malcolm is a 59-year-old right-handed patient with hypert ension, dyslipidemia, and remote history of heavy alcohol use, which he said he quit in March, and remote tobacco use as well. The patient's is at bedside. He said his episode which occurred 2 days ago is 1 of 3 similar events. The episode consisted of sudden difficulty getting his thoughts a nd words out. He would comprehend what was said, but was unable to reply, his words came out all mes sed up. His said when the event occurred immediately she got him to be evaluated. He came to [facility] emergency room. He came within the window for receiving thrombolysis and after negative head CT s can, all contraindications were ruled out. His NIH Stroke Scale was 3 for his aphasia, dysarthria, a nd some mild weakness in the right upper face. He again received TNK and his and the patient th ought that he did improve significantly and had no adverse issues. He was subsequently admitted to [facility] ICU for neuro checks per protocol and is to have a CT scan repeated 24 hours after receiving the T NK, which is about 8:39 today. The patient had no new complaints while he was in ICU. He is very douglas ppy so far with his treatment and his recovery. Past Medical History: As noted above. Allergies: LEVOFLOXACIN. Current Medications: He will restart aspirin 81 mg daily, Plavix 75 mg daily, after 24 hours of rece iving TNK, he is currently on Lipitor 80 mg at bedtime, folic acid 1 mg daily, allopurinol for gout 1 00 mg daily. He has COPD and he has albuterol nebulizer on board. Tylenol for pain, Protonix for GE reflux, Zofran for nausea, gabapentin for neuropathic pain. Family History: Noncontributory. Social History: Again the patient drank heavily, maybe a fifth every day to every other day for abou t 20 years and smoked about 10 years ago. Denied marijuana or IV drug use. Otherwise negative in terms of review of systems. He said he has had 2 similar episodes, but did see k medical attention, was not taking aspirin previously. Review of systems, denies, prior to this angela nt, any fevers, chills, nausea, vomiting, myalgias, arthralgias, rash or other complaints. Physical Examination: Vital Signs: Blood pressure 134/77, pulse of 84, respiratory rate 19, temperature 97.8, oxygen satur ation 95% to 100%, weight 196 pounds, height 5 feet 4 inches, BMI 33.7. General: Mr. Malcolm is resting comfortably in bed. He is in no acute distress. HEENT: He appears normocephalic, atraumatic. Sclerae anicteric. Oropharynx pink and moist. Neck: Supple. Chest: Clear. Heart: Regular. Extremities: No clubbing, cyanosis, or edema. Neurological: Cranial nerves 2-12 are intact. He has good labial, lingual and guttural sounds. No expressive or receptive aphasias detected. Motor examination 5/5 proximal and distal in upper and lo wer extremities. Sensation intact upper and lower extremities. Coordination intact upper and lower extremities. Reflexes 2+ upper and lower extremities. Laboratory Studies: Complete blood count with differential is completely normal. His INR 1.1. His comprehensive metabolic panel shows slightly elevated creatinine now 1.4, was 1.59. He has been hydr ated. Glucose ranged from 84 to 112. Normal liver function studies. LDL cholesterol 78, HDL 24, ch olesterol HDL ratio is 5.63, triglycerides 166, total cholesterol 135. His CT scan of the brain show s no acute ischemic or hemorrhagic findings. His CT angiogram head and neck showed no significant la rge vessel disease. Assessment: Mr. Malcolm is a 59-year-old patient with history of heavy alcohol use in the past, tob acco use in the past, with dyslipidemia, hypertension, who has had 3 total now TIAs, the last potenti ally a stroke from which he recovered after receiving TNK. He has no focal neurological deficits. Plan: The patient is instructed to take aspirin 81 mg a day, Plavix 75 mg a day once he has complete d the CT scan 24 hours after receiving TNK and that is negative. Folic acid 1 mg daily. Lipitor 80 mg at bedtime. He was instructed on how to change his diet or modify his diet and to exercise along with hydration and sleep to minimize the risk of additional stroke or myocardial infarction, which ar e related. After the patient is discharged, he should follow up in Dr. Calderon's clinic within the month. LB/MODL Voice ID: [id number] Report ID: [id number]
[2024-07-03] MEDS ORDERED: ALBUTEROL IH SCH (21:00)
[2024-07-03 21:22] VITALS: BP 136/73; TEMP 97.5
[2024-07-04] MEDS ORDERED: allopurinoL 100 MG TAB PO SCH (09:00)
[2024-07-04] MEDS ORDERED: FOLIC ACID 1 MG TABLET PO SCH (09:00)
[2024-07-04] MEDS ORDERED: ROFLUMILAST 500 MCG TABLET PO SCH (12:40)
[2024-07-04] MEDS ORDERED: CLOPIDOGREL 75 MG TABLET PO SCH (21:00)
--- NOTE | 2024-07-05 11:35 | EKG ---
Test Date: 2024-07-02 Test Time: 19:24:10 Product Inspection Coordinator: MARYLOU MEASUREMENT RESULTS: Intervals: Rate: 89 AK: 214 QRSD: 76 QT: 390 QTc: 474 [place]: P: 56 AK: 214 QRS: 57 T: 75 INTERPRETIVE STATEMENTS: Sinus rhythm with 1st degree AV block with frequent premature ventricular complexes Low voltage QRS Borderline ECG No previous ECG available for comparison Electronically Signed On 07-05-24 11:30:04 CDT by Angelito Camacho
== END 2024-07-03 22:25 | disposition home or self-care (01) | DRG 62 ==
LOC: ER 18:52 → 3RD-ICU 20:31
PROVIDERS: ADMIT Family Medicine; ATTEND Internal Medicine
DX: I63.9 Cerebral infarction, unspecified (principal); G81.91 Hemiplegia, unspecified affecting right dominant side; N17.9 Acute kidney failure, unspecified; E78.00 Pure hypercholesterolemia, unspecified; J44.9 Chronic obstructive pulmonary disease, unspecified; K21.9 Gastro-esophageal reflux disease without esophagitis; I12.9 Hypertensive chronic kidney disease with stage 1 through stage 4 chronic kidney disease, or unspecified chronic kidney disease; N18.30 Chronic kidney disease, stage 3 unspecified; R47.1 Dysarthria and anarthria; R29.703 NIHSS score 3; R47.02 Dysphasia; Z88.1 Allergy status to other antibiotic agents; Z90.49 Acquired absence of other specified parts of digestive tract; Z86.73 Personal history of transient ischemic attack (TIA), and cerebral infarction without residual deficits; Z79.899 Other long term (current) drug therapy; Z79.02 Long term (current) use of antithrombotics/antiplatelets; Z79.82 Long term (current) use of aspirin
CPT/HCPCS: 36415; 70450; 70496; 70498; 71045; 80048; 80053; 80061; 82565; 82947; 84484; 85025; 85610; 85730; 92977; 93005; 94760; 96365; 96375; 97116; 97161; 99285; J2270; J2405; J3101; J7030; Q9967